=== PATIENT | female | born 1960 | race Caucasian/White ===

== ENCOUNTER 2016-05-07 07:34 | Emergency (ER) | payer MEDICAID, OTHER ==
[~2016-05-07] VITALS: Ht 172.7 cm; Wt 89.5 kg
[~2016-05-07 07:34] MED LIST: AMLO5 PO
[2016-05-07 07:36] VITALS: BP 171/86; PULSE 118; RESP 20; TEMP 98.1; O2SAT 95
[2016-05-07] MEDS ORDERED: AMLO5 PO (07:47)
--- NOTE | 2016-05-07 07:56 | PD ---
HPI Chief Complaint: Edema Time Seen by Provider: 07:49 Travel History International Travel<30 days: No Contact w/Intl Traveler<30days: No Traveled to known affect area: No History of Present Illness HPI 56-year-old female with history of previous DVT in the right leg, has had problems with obtaining Medicaid and has been off of Coumadin for a month, presents to the ER today because of several days' history of swelling in the left leg and calf discomfort. She denies any chest pains, shortness of breath, or any other symptoms. Modifying Factors: None Associated Signs & Symptoms: Left leg swelling Risk Factors: History of DVT in the right leg, not on Coumadin PFSH Past Medical History Hx Anticoagulant Therapy: Yes (COUMADIN) Arthritis: Yes Asthma: No Autoimmune Disease: No Anxiety: No Depression: No Heart Rhythm Problems: No Cancer: No Cardiovascular Problems: No High Cholesterol: Yes Chemotherapy: No Chest Pain: No Congestive Heart Failure: No COPD: No Cerebrovascular Accident: No Diabetes: No Diminished Hearing: No Endocrine: No Gastrointestinal Disorders: No GERD: No Genitourinary: No Hiatal Hernia: No Hypertension: Yes Immune Disorder: No Implanted Vascular Access Dvce: No Kidney Stones: No Musculoskeletal: No Neurologic: No Psychiatric: No Reproductive: No Respiratory: No Immunizations Current: No Migraines: No Radiation Therapy: No Renal Failure: No Seizures: No Sickle Cell Disease: No Sleep Apnea: No Thyroid Disease: No Ulcer: No Menopausal: Yes : 2 Para: 0 : 2 Ectopic : No Ovarian Cysts: No Dilation and Curettage (D&C): Yes Tubal Ligation: No Past Surgical History Abdominal Surgery: No AICD: No Arteriovenous Shunt: No Body Medical Devices: LEFT ANKLE ORIF Cardiac Surgery: No Section: No Ear Surgery: No Endocrine Surgery: No Eye Surgery: No Genitourinary Surgery: No Gynecologic Surgery: Yes (CONE BIOPSY OF CERVIX) Hysterectomy: No Insulin Pump: No Joint Replacement: No Oral Surgery: No Pacemaker: No Thoracic Surgery: No Other Surgery: Yes (LEFT ANKLE REDUCTION) Social History Alcohol Use: Yes Tobacco Use: Yes Substance Use: No Allergies-Medications (Allergen,Severity, Reaction): Coded Allergies: No Known Allergies (Verified , 11/20/15) Reported Meds & Prescriptions Reported Meds & Active Scripts Active Reported Norvasc (Amlodipine Besylate) 5 Mg Tab 5 Mg PO DAILY Review of Systems Except as stated in HPI: all other systems reviewed are Neg Physical Exam Narrative GENERAL: Well-nourished, well-developed middle age white female patient in no acute distress. SKIN: Warm and dry. HEAD: Normocephalic. EYES: No scleral icterus. No injection or drainage. NECK: Supple, trachea midline. CARDIOVASCULAR: Regular rate and rhythm without murmurs, gallops, or rubs. RESPIRATORY: Breath sounds equal bilaterally. No accessory muscle use. GASTROINTESTINAL: Abdomen soft, non-tender, nondistended. MUSCULOSKELETAL: No cyanosis, or edema. BACK: Nontender without obvious deformity. No CVA tenderness. EXTREMITIES: No clubbing, cyanosis, but with bilateral pitting lower extremity edema. No joint tenderness, effusion, or edema noted. Data Data Last Documented VS Vital Signs Date Time Temp Pulse Resp B/P Pulse Ox O2 Delivery O2 Flow Rate FiO2 05/07/16 09:56 92 21 136/68 99 Room Air 05/07/16 07:36 98.1 Orders Complete Blood Count With Diff (05/07/16 07:49) Basic Metabolic Panel (Bmp) (05/07/16 07:49) Prothrombin Time / Inr (Pt) (05/07/16 07:49) Act Partial Throm Time (Ptt) (05/07/16 07:49) Us Leg Venous Doppler Bilat (05/07/16 07:56) Enoxaparin Inj (Lovenox Inj) (05/07/16 09:45) Labs Laboratory Tests Test 05/07/16 07:50 White Blood Count 4.5 TH/MM3 Red Blood Count 4.89 MIL/MM3 Hemoglobin 17.2 GM/DL Hematocrit 49.8 % Mean Corpuscular Volume 101.9 FL Mean Corpuscular Hemoglobin 35.2 PG Mean Corpuscular Hemoglobin 34.5 % Concent Red Cell Distribution Width 15.6 % Platelet Count 173 TH/MM3 Mean Platelet Volume 6.2 FL Neutrophils (%) (Auto) 56.8 % Lymphocytes (%) (Auto) 30.0 % Monocytes (%) (Auto) 9.6 % Eosinophils (%) (Auto) 2.9 % Basophils (%) (Auto) 0.7 % Neutrophils # (Auto) 2.6 TH/MM3 Lymphocytes # (Auto) 1.4 TH/MM3 Monocytes # (Auto) 0.4 TH/MM3 Eosinophils # (Auto) 0.1 TH/MM3 Basophils # (Auto) 0.0 TH/MM3 CBC Comment DIFF FINAL Differential Comment Prothrombin Time 10.5 SEC Prothromb Time International 1.0 RATIO Ratio Activated Partial 23.7 SEC Thromboplast Time Sodium Level 142 MEQ/L Potassium Level 3.6 MEQ/L Chloride Level 105 MEQ/L Carbon Dioxide Level 25.4 MEQ/L Anion Gap 12 MEQ/L Blood Urea Nitrogen 7 MG/DL Creatinine 0.56 MG/DL Estimat Glomerular Filtration 112 ML/MIN Rate Random Glucose 132 MG/DL Calcium Level 8.8 MG/DL MDM Medical Decision Making Medical Screen Exam Complete: Yes Emergency Medical Condition: Yes Medical Record Reviewed: Yes Interpretation(s) Laboratory Tests Test 05/07/16 07:50 Hemoglobin 17.2 GM/DL (11.6-15.3) Hematocrit 49.8 % (35.0-46.0) Mean Corpuscular Volume 101.9 FL (80.0-100.0) Mean Corpuscular Hemoglobin 35.2 PG (27.0-34.0) Mean Platelet Volume 6.2 FL (7.0-11.0) Monocytes (%) (Auto) 9.6 % (0.0-8.0) Activated Partial 23.7 SEC Thromboplast Time (24.3-30.1) Random Glucose 132 MG/DL (74-106) Differential Diagnosis Left leg swellingrule out DVT versus dependent edema Narrative Course Ultrasound reveals right sided DVT which was previously diagnosed. Patient has not been able to take her blood thinners secondary to insurance issues. There is no new left-sided DVT which patient is complaining about now. The case was initially discussed briefly with Dr. Moore who reviewed the chart with me and noted that the patient had a bleeding episode in the past with Coumadin and had been recommended by Dr. Patrick of hematology to be on Eliquis. At this point, it does not appear that she needs inpatient admission but does need help with getting her Eliquis. I have talked to case management regarding the patient and we will give the patient a prescription for Eliquis and she will need to get this filled on her own. Patient states she will be able to do this for this month and will need to be evaluated for Medicare and Medicaid. She should return for any shortness of breath, chest pains, worsening in swelling or new issues as needed. The plan has been discussed with the patient and she states understanding and states that she thinks she can get this done as an outpatient. Diagnosis Primary Impression: Deep vein thrombosis (DVT) of right lower extremity Med/Other Pt SpecificInfo: Prescription(s) given Scripts Apixaban (Eliquis)5 Mg Tab10 Mg PO BID #14 TAB Ref 0 Prov:Ermias Real MD 05/07/16 Apixaban (Eliquis)5 Mg Tab5 Mg PO BID #60 TAB Ref 0 Prov:Ermias Real MD 05/07/16 Disposition: 01 DISCHARGE HOME Condition: Stable Ermias Real MD May 07, 2016 07:56
[2016-05-07 08:09] LABS: AUTOMATED NEUTROPHIL # 2.6 TH/MM3 (1.8-7.7); BASOPHIL % 0.7 % (0.0-2.0); EOSINOPHIL # 0.1 TH/MM3 (0-0.4); EOSINOPHIL % 2.9 % (0.0-4.0); HEMATOCRIT 49.8 % (35.0-46.0); HEMO FLAGS DIFF FINAL; LYMPHOCYTE # 1.4 TH/MM3 (1.0-4.8); MEAN CELL VOLUME 101.9 FL (80.0-100.0); MEAN CORPUSCULAR HEMOGLOBIN 35.2 PG (27.0-34.0); MEAN CORPUSCULAR HGB CONC 34.5 % (32.0-36.0); MONO % 9.6 % (0.0-8.0); NEUT % 56.8 % (16.0-70.0); PLATELET COUNT 173 TH/MM3 (150-450); RED BLOOD COUNT 4.89 MIL/MM3 (4.00-5.30); RED CELL DISTRIBUTION WIDTH 15.6 % (11.6-17.2); WHITE BLOOD COUNT 4.5 TH/MM3 (4.0-11.0)
[2016-05-07 08:15] LABS: APTT (PATIENT) 23.7 SEC (24.3-30.1); PROTHROMBIN TIME - PATIENT 10.5 SEC (9.8-11.6)
[2016-05-07 08:35] LABS: BICARBONATE 25.4 MEQ/L (21.0-32.0); POTASSIUM 3.6 MEQ/L (3.5-5.1)
--- NOTE | 2016-05-07 09:28 | RADRPT ---
EXAM DATE/TIME: 05/07/2016 07:46 [facility] COMPARISON: No previous studies available for comparison. INDICATIONS : Bilateral leg swelling. MEDICAL HISTORY : Hypercholesterolemia. Hypertension. Arthritis. Anticoagulant therapy. Hx of Dvt right leg. SURGICAL HISTORY : CONE procedure of cervix. Left ankle surgery. ENCOUNTER: Subsequent ACUITY: 1 day PAIN SCORE: 7/10 LOCATION: Bilateral legs. TECHNIQUE: Venous ultrasound of the left and right leg was performed from the inguinal ligament to the proximal calf. Real-time, color Doppler and spectral tracing, compression and augmentation techniques were us ed. FINDINGS: RIGHT LEG: There is extensive right lower extremity DVT with clot seen in the iliac, common femoral, superficial femoral and tibial veins. LEFT LEG: There is normal compressibility of the deep venous system from the inguinal region to the proximal ca lf. No echogenic clot is seen in the lumen of the common femoral, femoral, popliteal, and posterior tibial veins. There is a normal response of the venous system to proximal and distal augmentation an d respiration. CONCLUSION: Extensive right lower extremity DVT Yann Torres MD on May 07, 2016 at 9:25 Board Certified Radiologist. This report was verified electronically.
[2016-05-07] MEDS ORDERED: ENOXAPARIN SODIUM 80 MG/0.8 ML SYRINGE SQ ONE (09:45)
[2016-05-07 09:56] VITALS: BP 136/68; PULSE 92; RESP 21; O2SAT 99
[2016-05-07] MEDS ORDERED: APIX5TAB PO (10:43)
[2016-05-07 11:54] VITALS: BP 134/88
== END 2016-05-07 12:21 | disposition home or self-care (01) ==
LOC: NEPE 07:34
DX: I82.401 Acute embolism and thrombosis of unspecified deep veins of right lower extremity (principal); R22.42 Localized swelling, mass and lump, left lower limb; E78.00 Pure hypercholesterolemia, unspecified; I10 Essential (primary) hypertension; Z72.0 Tobacco use
CPT/HCPCS: 80048; 85025; 85610; 85730; 93970; 96372; 99284; J1650

== ENCOUNTER 2017-04-11 15:37 | Inpatient (IN) | payer OTHER, MEDICARE ==
[~2017-04-11] VITALS: Ht 172.7 cm; Wt 99.5 kg
[~2017-04-11 15:37] MED LIST changes: +APIX5TAB PO
[2017-04-11 15:56] VITALS: BP 141/81; PULSE 110; RESP 22; TEMP 99.1; O2SAT 97
[2017-04-11 15:57] VITALS: O2SAT 98
[2017-04-11] MEDS ORDERED: SODIUM CHLOR 0.9% 1000 ML INJ 1,000 ML IV ONE (16:00)
[2017-04-11] MEDS ORDERED: ONDANSETRON HCL 4 MG/2 ML VIAL IVP ONE (16:00)
[2017-04-11] MEDS ORDERED: SODIUM CHLORIDE 0.9% FLUSH 10 ML FLUSH IVF PRN (16:00)
[2017-04-11] MEDS ORDERED: HYDROmorphone HCL PF 1 MG/ML VIAL IVS ONE (16:00)
[2017-04-11] MEDS ORDERED: SIMV80TA PO (16:03)
--- NOTE | 2017-04-11 16:31 | RADRPT ---
EXAM DATE/TIME: 04/11/2017 16:02 [facility] COMPARISON: No previous studies available for comparison. INDICATIONS : Right hip pain, fell MEDICAL HISTORY : Arthritis. Hypertension SURGICAL HISTORY : None. ENCOUNTER: Initial ACUITY: 1 day PAIN SCORE: 10/10 LOCATION: Right Hip FINDINGS: Examination of the right hip was performed with AP Pelvis. There is an oblique fracture through the t rochanteric and subtrochanteric region of the proximal right femur. The femoral head remains within t he acetabulum. There is moderate to prominent osteoarthritis at the right hip joint. The bony structu res of the pelvis are grossly intact. There is good alignment the left hip joint.. CONCLUSION: Oblique fracture through the trochanteric and subtrochanteric region of the proximal right femur. Abelardo Combs MD on April 11, 2017 at 16:29 Board Certified Radiologist. This report was verified electronically.
--- NOTE | 2017-04-11 17:08 | PD ---
HPI Chief Complaint: Fall Time Seen by Provider: 15:51 Travel History International Travel<30 days: No Contact w/Intl Traveler<30days: No Traveled to known affect area: No History of Present Illness HPI The patient's 49 years old had a mechanical fall this morning. She fell onto her right hip. She's had pain since then. The fire department came to her house and helped onto her chair. She spent the day they are and then called EMS and she was unable to walk. EMS reports a shortened rotated right lower extremity. Constant severe pain reported. Patient reports drinking alcohol today, "a sip." PFSH Past Medical History Hx Anticoagulant Therapy: Yes (ELIQUIS) Arthritis: Yes Asthma: No Autoimmune Disease: No Anxiety: No Depression: No Heart Rhythm Problems: No Cancer: No Cardiovascular Problems: Yes (HTN HIGH CHOLESTEROL) High Cholesterol: Yes Chemotherapy: No Chest Pain: No Congestive Heart Failure: No COPD: No Cerebrovascular Accident: No Diabetes: No Diminished Hearing: No Endocrine: No Gastrointestinal Disorders: No GERD: No Genitourinary: No Hiatal Hernia: No Hypertension: Yes Immune Disorder: No Implanted Vascular Access Dvce: No Kidney Stones: No Musculoskeletal: No Neurologic: No Psychiatric: No Reproductive: No Respiratory: No Immunizations Current: No Migraines: No Radiation Therapy: No Renal Failure: No Seizures: No Sickle Cell Disease: No Sleep Apnea: No Thyroid Disease: No Ulcer: No Influenza Vaccination: No ?: Not Menopausal: Yes : 2 Para: 0 : 2 Ectopic : No Ovarian Cysts: No Dilation and Curettage (D&C): Yes Tubal Ligation: No Past Surgical History Abdominal Surgery: No AICD: No Arteriovenous Shunt: No Body Medical Devices: LEFT ANKLE ORIF Cardiac Surgery: No Section: No Ear Surgery: No Endocrine Surgery: No Eye Surgery: No Genitourinary Surgery: No Gynecologic Surgery: Yes (CONE BIOPSY OF CERVIX) Hysterectomy: No Insulin Pump: No Joint Replacement: No Oral Surgery: No Pacemaker: No Thoracic Surgery: No Other Surgery: Yes (LEFT ANKLE REDUCTION) Social History Alcohol Use: Yes (1 PINT DAILY) Tobacco Use: Yes (6 CIGS/DAY) Substance Use: No Allergies-Medications (Allergen,Severity, Reaction): Coded Allergies: No Known Allergies (Verified Adverse Reaction, Unknown, 04/11/17) Reported Meds & Prescriptions Reported Meds & Active Scripts Active Eliquis (Apixaban) 5 Mg Tab 5 Mg PO BID Reported Norvasc (Amlodipine Besylate) 5 Mg Tab 10 Mg PO DAILY Review of Systems Except as stated in HPI: all other systems reviewed are Neg General / Constitutional: No: Fever Physical Exam Narrative GENERAL: 57-year-old female pleasant well-nourished well-developed mild to moderate distress secondary to pain SKIN: Warm and dry. HEAD: Atraumatic. Normocephalic. EYES: Pupils equal and round. No scleral icterus. No injection or drainage. ENT: No nasal bleeding or discharge. Mucous membranes pink and moist. NECK: Trachea midline. No JVD. CARDIOVASCULAR: Regular rate and rhythm. RESPIRATORY: No accessory muscle use. Clear to auscultation. Breath sounds equal bilaterally. GASTROINTESTINAL: Abdomen soft, non-tender, nondistended. Hepatic and splenic margins not palpable. MUSCULOSKELETAL: Right lower extremity shortened and externally rotated. 2+ dorsalis pedis bilaterally. NEUROLOGICAL: Awake and alert. No obvious cranial nerve deficits. Motor grossly within normal limits. Five out of 5 muscle strength in the arms and legs. Normal speech. PSYCHIATRIC: Appropriate mood and affect; insight and judgment normal. Data Data Last Documented VS Vital Signs Date Time Temp Pulse Resp B/P (MAP) Pulse Ox O2 Delivery O2 Flow Rate FiO2 04/11/17 15:57 98 Room Air 04/11/17 15:56 99.1 110 22 Vital signs reviewed Orders Orders Complete Blood Count With Diff (04/11/17 15:51) Comprehensive Metabolic Panel (04/11/17 15:51) Prothrombin Time / Inr (Pt) (04/11/17 15:51) Act Partial Throm Time (Ptt) (04/11/17 15:51) Urinalysis - C+S If Indicated (04/11/17 15:51) Hip, Uni(Ap&Lat) W Ap Pelvis (04/11/17 15:51) Iv Access Insert/Monitor (04/11/17 15:51) Oximetry (04/11/17 15:51) Ecg Monitoring (04/11/17 15:51) Ondansetron Inj (Zofran Inj) (04/11/17 16:00) Sodium Chloride 0.9% Flush (Ns Flush) (04/11/17 16:00) Hydromorphone Pf Inj (Dilaudid Pf Inj) (04/11/17 16:00) Sodium Chlor 0.9% 1000 Ml Inj (Ns 1000 M (04/11/17 16:00) Alcohol (Ethanol) (04/11/17 15:51) Hydromorphone Pf Inj (Dilaudid Pf Inj) (04/11/17 17:15) Admit Order (Ed Use Only) (04/11/17 ) Vital Signs (Adult) Q4H (04/11/17 17:16) Diet Heart Healthy (04/11/17 Dinner) Activity Bed Rest (04/11/17 17:16) Labs Laboratory Tests Test 04/11/17 15:56 White Blood Count 10.1 TH/MM3 Red Blood Count 3.86 MIL/MM3 Hemoglobin 14.1 GM/DL Hematocrit 41.8 % Mean Corpuscular Volume 108.4 FL Mean Corpuscular Hemoglobin 36.6 PG Mean Corpuscular Hemoglobin Concent 33.7 % Red Cell Distribution Width 14.5 % Platelet Count 202 TH/MM3 Mean Platelet Volume 6.6 FL Neutrophils (%) (Auto) 81.8 % Lymphocytes (%) (Auto) 9.8 % Monocytes (%) (Auto) 7.7 % Eosinophils (%) (Auto) 0.2 % Basophils (%) (Auto) 0.5 % Neutrophils # (Auto) 8.3 TH/MM3 Lymphocytes # (Auto) 1.0 TH/MM3 Monocytes # (Auto) 0.8 TH/MM3 Eosinophils # (Auto) 0.0 TH/MM3 Basophils # (Auto) 0.0 TH/MM3 CBC Comment DIFF FINAL Differential Comment Prothrombin Time 10.2 SEC Prothromb Time International Ratio 1.0 RATIO Activated Partial Thromboplast Time 23.8 SEC Blood Urea Nitrogen 5 MG/DL Creatinine 0.55 MG/DL Random Glucose 133 MG/DL Total Protein 6.6 GM/DL Albumin 3.0 GM/DL Calcium Level 7.7 MG/DL Alkaline Phosphatase 79 U/L Aspartate Amino Transf (AST/SGOT) 48 U/L Alanine Aminotransferase (ALT/SGPT) 48 U/L Total Bilirubin 0.5 MG/DL Sodium Level 143 MEQ/L Potassium Level 2.9 MEQ/L Chloride Level 106 MEQ/L Carbon Dioxide Level 23.5 MEQ/L Anion Gap 14 MEQ/L Estimat Glomerular Filtration Rate 114 ML/MIN Ethyl Alcohol Level 133 MG/DL MDM Medical Decision Making Medical Screen Exam Complete: Yes Emergency Medical Condition: Yes Medical Record Reviewed: Yes Differential Diagnosis Pelvis fracture, femur fracture, contusion, alcohol abuse Narrative Course CBC & BMP Diagram 04/11/17 15:56 Total Protein 6.6, Albumin 3.0 L, Calcium Level 7.7 L, Alkaline Phosphatase 79, Aspartate Amino Transf (AST/SGOT) 48 H, Alanine Aminotransferase (ALT/SGPT) 48, Total Bilirubin 0.5 Alcohol 133 UA: UA unlikely Last 24 hours Impressions Hip and Pelvis X-Ray 04/11/17 1551 Signed Impressions: Service Date/Time: Tuesday, April 11, 2017 16:02 - CONCLUSION: Oblique fracture through the trochanteric and subtrochanteric region of the proximal right femur. Abelardo Combs MD The patient has a oblique fracture through the trochanter and subtrochanteric region of the proximal right femur. She'll be admitted for operative repair. Asked by mouth Xarelto dose was April 10, yesterday, evening. She took none today. Case discussed with Dr. Lee. Case discussed with Dr. Foley Diagnosis Primary Impression: Femur fracture, right Qualified Codes: S72.91XA - Unspecified fracture of right femur, initial encounter for closed fracture Additional Impressions: Fall Qualified Codes: W19.XXXA - Unspecified fall, initial encounter Hypokalemia Admitting Information Admitting Physician Requests: Admit Urbano Beckford MD Apr 11, 2017 17:08
[2017-04-11] MEDS ORDERED: HYDROmorphone HCL PF 1 MG/ML VIAL IV PUSH ONE (17:15)
[2017-04-11 17:16] LABS: AUTOMATED NEUTROPHIL # 8.3 TH/MM3 (1.8-7.7); BASOPHIL % 0.5 % (0.0-2.0); EOSINOPHIL % 0.2 % (0.0-4.0); HEMATOCRIT 41.8 % (35.0-46.0); HEMO FLAGS DIFF FINAL; LYMPH % 9.8 % (9.0-44.0); MEAN CELL VOLUME 108.4 FL (80.0-100.0); MEAN CORPUSCULAR HEMOGLOBIN 36.6 PG (27.0-34.0); MEAN CORPUSCULAR HGB CONC 33.7 % (32.0-36.0); MONO % 7.7 % (0.0-8.0); NEUT % 81.8 % (16.0-70.0); PLATELET COUNT 202 TH/MM3 (150-450); RED BLOOD COUNT 3.86 MIL/MM3 (4.00-5.30); RED CELL DISTRIBUTION WIDTH 14.5 % (11.6-17.2); WHITE BLOOD COUNT 10.1 TH/MM3 (4.0-11.0)
[2017-04-11 17:27] LABS: APTT (PATIENT) 23.8 SEC (24.3-30.1); PROTHROMBIN TIME - PATIENT 10.2 SEC (9.8-11.6)
[2017-04-11 17:46] LABS: ALT (GPT) 48 U/L (10-53); ANION GAP 14 MEQ/L (5-15); AST (GOT) 48 U/L (15-37); BICARBONATE 23.5 MEQ/L (21.0-32.0); BLOOD UREA NITROGEN 5 MG/DL (7-18); CHLORIDE 106 MEQ/L (98-107); GLOMERULAR FILTRATION RATE 114 ML/MIN (>89); SODIUM (NA) 143 MEQ/L (136-145)
[2017-04-11 17:48] LABS: ALKALINE PHOSPHATASE 79 U/L (45-117); TOTAL BILIRUBIN ADULT 0.5 MG/DL (0.2-1.0)
[2017-04-11 18:05] LABS: ALCOHOL 133 MG/DL (0-5)
[2017-04-11 18:08] LABS: POTASSIUM 2.9 MEQ/L (3.5-5.1)
[2017-04-11 18:11] LABS: BACTERIA, URINE RARE /hpf; BLOOD, URINE NEG (NEG); COMMENT (UR) CATH-CULTURE IND; CULTURE IF INDICATED CATH CULTURE IND; GLUCOSE,URINE NEG (NEG); HYALINE CAST, URINE 35 /lpf (RARE); KETONE, URINE 10 mg/dL (NEG); MUCUS URINE FEW /lpf (OCC); NITRITE,URINE NEG (NEG); PH, URINE 5.5 (5.0-8.5); SQUAMOUS EPITHELIAL CELL URINE 3 /hpf (0-5); URINE COLOR YELLOW (YELLW/STRAW)
[2017-04-11] MEDS ORDERED: cefTRIAXone INJ 1,000 MG in SODIUM CHLORIDE 0.9% INJ 100 ML IV ONE (18:15)
[2017-04-11] MEDS ORDERED: POTASSIUM CHLORIDE 20 MEQ CONTROLLED RELEASE TAB PO ONE ×2 (18:15)
[2017-04-11] MEDS ORDERED: PROMETHAZINE INJ 25 MG/ML VIAL IM ONE (18:30)
[2017-04-11] MEDS ORDERED: FLUMAZENIL 0.5 MG/5 ML VIAL IV PUSH PRN (18:45)
[2017-04-11] MEDS ORDERED: LACTULOSE SYRUP 20 GM/30 ML CUP PO PRN (18:45)
[2017-04-11] MEDS ORDERED: cloNIDine HCL 0.1 MG TAB PO PRN (18:45)
[2017-04-11] MEDS ORDERED: SODIUM CHLORIDE 0.9% FLUSH 10 ML FLUSH IV FLUSH PRN ×2 (18:45)
[2017-04-11] MEDS ORDERED: LORazepam 2 MG TAB PO PRN (18:45)
[2017-04-11] MEDS ORDERED: MORPHINE SULFATE 4 MG/ML INJ IV PUSH PRN ×2 (18:45)
[2017-04-11] MEDS ORDERED: HALOPERIDOL LACTATE 5 MG/ML AMP IM PRN (18:45)
[2017-04-11] MEDS ORDERED: LORazepam 1 MG TAB PO PRN (18:45)
[2017-04-11] MEDS ORDERED: SENNOSIDES 8.6 MG TAB PO PRN (18:45)
[2017-04-11] MEDS ORDERED: ZOLPIDEM TARTRATE 5 MG TAB PO PRN (18:45)
[2017-04-11] MEDS ORDERED: ONDANSETRON HCL 4 MG/2 ML VIAL IVP PRN (18:45)
[2017-04-11] MEDS ORDERED: MAGNESIUM HYDROXIDE SUSP 30 ML CUP PO PRN (18:45)
[2017-04-11] MEDS ORDERED: IBUPROFEN 400 MG TAB PO PRN (18:45)
[2017-04-11] MEDS ORDERED: LORazepam 2 MG/ML VIAL IV PUSH PRN ×4 (18:45)
[2017-04-11] MEDS ORDERED: BISACODYL 10 MG SUPP RECTAL PRN (18:45)
[2017-04-11] MEDS ORDERED: PROCHLORPERAZINE 25 MG SUPP RECTAL PRN (18:45)
[2017-04-11] MEDS ORDERED: ACETAMINOPHEN 325 MG TAB PO PRN (18:45)
[2017-04-11] MEDS ORDERED: NALOXONE HCL 0.4 MG/ML AMP IV PUSH PRN (18:45)
[2017-04-11 18:47] VITALS: BP 134/74; PULSE 105; RESP 17; O2SAT 98
[2017-04-11] MEDS ORDERED: chlordiazePOXIDE 25 MG CAP PO PRN (19:00)
[2017-04-11] MEDS ORDERED: NICOTINE 7 MG/24 HR PATCH T-DERMAL ONE (19:00)
--- NOTE | 2017-04-11 19:21 | HHI.HP ---
[facility] Physician Dalila Wu DO Admission Diagnosis R Intertrochanteric Fracture; Fall Diagnoses: Chief Complaint: Status post fall Travel History International Travel<30 Days: No Contact w/Intl Traveler <30 Da: No Traveled to Known Affected Are: No History of Present Illness Patient is a 49-year-old female. Had a mechanical fall this morning. She has a history of chronic alcoholism hypertension and chronic blood clots on Eliquis Patient fell on her right hip. She is therefore had pain to the area since then. The fire department was called and they came to her house helped her onto her chair. She then spent the day on her chair and then called EMS and she was unable to walk. EMS reports is shortened and rotated right lower extremity. An constant severe pain reported patient reports drinking alcohol today. Patient also states that she normally drinks a pint of vodka every day if not more. Also smokes 6 cigarettes daily down from 1-1/2 packs a day Review of Systems Constitutional: DENIES: Diaphoretic episodes, Fatigue, Weight loss, Chills Endocrine: DENIES: Abnorml menstrual pattern, Heat/cold intolerance, Polydipsia , Polyuria, Polyphagia Eyes: DENIES: Blurred vision, Diplopia, Eye inflammation, Eye pain Ears, nose, mouth, throat: DENIES: Hearing loss, Vertigo, Nasal discharge, Oral lesions Respiratory: COMPLAINS OF: Cough, DENIES: Apneas, Snoring, Wheezing, Hemoptysis , Sputum production Cardiovascular: DENIES: Chest pain, Palpitations, Syncope, Dyspnea on Exertion Gastrointestinal: DENIES: Abdominal pain, Black stools, Bloody stools Genitourinary: DENIES: Abnormal vaginal bleeding, Dysmenorrhea Musculoskeletal: COMPLAINS OF: Joint pain, DENIES: Muscle aches, Stiffness, Joint Swelling, Back pain Integumentary: DENIES: Abnormal pigmentation, Pruritus, Rash, Nail changes Hematologic/lymphatic: DENIES: Bruising, Lymphadenopathy Immunologic/allergic: DENIES: Eczema, Urticaria Neurologic: COMPLAINS OF: Abnormal gait, Localized weakness, Poor Balance, DENIES: Headache, Paresthesias, Seizures, Speech Problems, Tremor Psychiatric: DENIES: Anxiety, Confusion, Mood changes, Depression, Hallucinations, Agitation Except as stated in HPI: all other systems reviewed are Neg Past Family Social History Past Medical History Chronic anticoagulation on Eliquis Osteoarthritis Hypertension Hyperlipidemia Past Surgical History History of D&C Left ankle ORIF History of cone biopsy of the cervix Left ankle reduction Reported Medications Reported Meds & Active Scripts Active Eliquis (Apixaban) 5 Mg Tab 5 Mg PO BID Reported Simvastatin 80 Mg Tab 80 Mg PO DAILY Norvasc (Amlodipine Besylate) 5 Mg Tab 10 Mg PO DAILY Allergies: Coded Allergies: No Known Allergies (Verified Allergy, Unknown, 04/11/17) Active Ordered Medications Current Medications Ondansetron HCl (Zofran Inj) 4 mg ONCE ONCE IVP Last administered on 16:15; Start 04/11/17 at 16:00; Stop 04/11/17 at 16:01; Status DC Sodium Chloride (NS Flush) 2 ml UNSCH PRN IVF FLUSH AFTER USING IV ACCESS; Start 04/11/17 at 16:00 Hydromorphone HCl (Dilaudid Pf Inj) 0.5 mg ONCE ONCE IVS Last administered on 04/11/17 16:16; Start 04/11/17 at 16:00; Stop 04/11/17 at 16:01; Status DC Sodium Chloride 1,000 ml @ 999 mls/hr BOLUS ONCE IV Last administered on 16:15; Start 04/11/17 at 16:00; Stop 04/11/17 at 17:00; Status DC Hydromorphone HCl (Dilaudid Pf Inj) 1 mg ONCE ONCE IV PUSH Last administered on 04/11/17 17:34; Start 04/11/17 at 17:15; Stop 04/11/17 at 17:16; Status DC Potassium Chloride (KCl) 40 meq ONCE ONCE PO Last administered on 04/11/17 18:35; Start 04/11/17 at 18:15; Stop 04/11/17 at 18:16; Status DC Potassium Chloride (KCl) 40 meq ONCE ONCE PO ; Start 04/11/17 at 18:15; Stop 04/11/17 at 18:16; Status DC Ceftriaxone Sodium 1000 mg/ Sodium Chloride 100 ml @ 200 mls/hr ONCE ONCE IV Last administered on 04/11/17 18:35; Start 04/11/17 at 18:15; Stop 04/11/17 at 18:44; Status DC Promethazine HCl (Phenergan Inj) 25 mg ONCE ONCE IM Last administered on 04/11 18:35; Start 04/11/17 at 18:30; Stop 04/11/17 at 18:31; Status DC Sodium Chloride (NS Flush) 2 ml UNSCH PRN IV FLUSH FLUSH AFTER USING IV ACCESS ; Start 04/11/17 at 18:45; Status UNV Sodium Chloride (NS Flush) 2 ml BID IV FLUSH ; Start 04/11/17 at 21:00; Status UNV Acetaminophen (Tylenol) 650 mg Q4H PRN PO TEMP > 100.4; Start 04/11/17 at 18: 45 Ondansetron HCl (Zofran Inj) 4 mg Q6H PRN IVP NAUSEA OR VOMITING; Start at 18:45; Status UNV Prochlorperazine (Compazine Supp) 25 mg Q12H PRN FL NAUSEA OR VOMITING; Start 04/11/17 at 18:45; Status UNV Zolpidem Tartrate (Ambien) 5 mg HS PRN PO INSOMNIA; Start 04/11/17 at 18:45; Status UNV Ibuprofen (Motrin) 400 mg Q6H PRN PO PAIN SCALE 1 TO 2; Start 04/11/17 at 18: 45; Status UNV Oxycodone HCl (Roxicodone) 10 mg Q4H PRN PO PAIN SCALE 6 TO 10; Start at 18:45; Status UNV Morphine Sulfate (Morphine Inj) 2 mg Q3H PRN IV PUSH Pain 3-5; if unable to take PO; Start 04/11/17 at 18:45; Status UNV Morphine Sulfate (Morphine Inj) 4 mg Q3H PRN IV PUSH Pain 6-10;if unable to take PO; Start 04/11/17 at 18:45; Status UNV Morphine Sulfate (Morphine Inj) 4 mg Q3H PRN IV PUSH BREAKTHROUGH PAIN; Start 04/11/17 at 18:45; Status UNV Oxycodone HCl (Roxicodone) 5 mg Q4H PRN PO PAIN SCALE 3 TO 5; Start 04/11/17 at 18:45; Status UNV Naloxone HCl (Narcan Inj) 0.4 mg UNSCH PRN IV PUSH SEE LABEL COMMENTS; Start 04/11/17 at 18:45; Status UNV Senna/Docusate Sodium (Tarsha-Colace) 1 tab BID PO ; Start 04/11/17 at 21:00 Magnesium Hydroxide (Milk Of Magnesia Liq) 30 ml Q12H PRN PO Mild constipation ; Start 04/11/17 at 18:45; Status UNV Sennosides (Senokot) 17.2 mg Q12H PRN PO Moderate constipation; Start at 18:45; Status UNV Bisacodyl (Dulcolax Supp) 10 mg DAILY PRN RECTAL SEVERE CONSITIPATION; Start 04/11/17 at 18:45 Lactulose (Lactulose Liq) 30 ml DAILY PRN PO SEVERE CONSITIPATION; Start 04/11 at 18:45; Status UNV Flumazenil (Romazicon Inj) 0.2 mg Q1M PRN IV PUSH SEE LABEL COMMENTS; Start at 18:45 Lorazepam (Ativan) 1 mg Q4H PRN PO CIWA 8 - 10; Start 04/11/17 at 18:45; Status UNV Lorazepam (Ativan Inj) 1 mg Q4H PRN IV PUSH CIWA 8 - 10; Start 04/11/17 at 18: 45; Status UNV Lorazepam (Ativan) 2 mg Q2H PRN PO CIWA 11-14; Start 04/11/17 at 18:45; Status UNV Lorazepam (Ativan Inj) 2 mg Q2H PRN IV PUSH CIWA 11-14; Start 04/11/17 at 18: 45; Status UNV Lorazepam (Ativan Inj) 2 mg Q1H PRN IV PUSH CIWA 15-20; Start 04/11/17 at 18: 45; Status UNV Lorazepam (Ativan Inj) 2 mg Q15M PRN IV PUSH CIWA > 20; Start 04/11/17 at 18: 45; Status UNV Sodium Chloride (NS Flush) 2 ml UNSCH PRN IV FLUSH FLUSH AFTER USING IV ACCESS ; Start 04/11/17 at 18:45; Status UNV Sodium Chloride (NS Flush) 2 ml BID IV FLUSH ; Start 04/11/17 at 21:00; Status UNV Folic Acid (Folate) 1 mg DAILY PO ; Start 04/11/17 at 18:45; Stop 04/16/17 at 18:44; Status UNV Thiamine HCl (Vitamin B1) 100 mg DAILY PO ; Start 04/11/17 at 18:45; Status UNV Multivitamins/ Minerals Therapeutic (Theragran M Tab) 1 tab DAILY PO ; Start at 18:45; Stop 04/16/17 at 18:44; Status UNV Multivitamins 10 ml/Folic Acid 1 mg/Sodium Chloride 510.2 ml @ 125 mls/hr Q24H IV ; Start 04/11/17 at 20:00; Stop 04/16/17 at 19:59 Thiamine HCl 100 mg/Sodium Chloride 101 ml @ 100 mls/hr Q24H IV ; Start at 20:00; Stop 04/14/17 at 19:59 Thiamine HCl (Vitamin B1) 100 mg DAILY PO ; Start 04/15/17 at 09:00; Status UNV Famotidine (Pepcid) 20 mg BID PO ; Start 04/11/17 at 21:00 Clonidine (Catapres) 0.1 mg Q6H PRN PO SEE LABEL COMMENTS; Start 04/11/17 at 18:45 Haloperidol Lactate (Haldol Inj) 2 mg Q15M PRN IM SEE LABEL COMMENTS; Start at 18:45; Status UNV Nicotine (Habitrol 7 Mg Patch.24 Hr) 1 patch DAILY T-DERMAL ; Start 04/12/17 at 09:00; Status UNV Nicotine (Habitrol 7 Mg Patch.24 Hr) 1 patch ONCE ONCE T-DERMAL ; Start at 19:00; Stop 04/11/17 at 19:01; Status UNV Miscellaneous Information 1 DAILY T-DERMAL ; Start 04/12/17 at 09:00; Status UNV Chlordiazepoxide (Librium) 50 mg Q6H PRN PO WITHDRAWAL; Start 04/11/17 at 19: 00 Amlodipine Besylate (Norvasc) 10 mg DAILY PO ; Start 04/11/17 at 19:00 Non-Formulary Medication 80 mg DAILY PO ; Start 04/11/17 at 19:00; Status UNV Family History Tobacco abuse and suspected hypertension Social History Drinks at least a pint of vodka every day Smokes 6 cigarettes now down from one half packs of cigarettes a day Denies any illicits Physical Exam Vital Signs Vital Signs Date Time Temp Pulse Resp B/P (MAP) Pulse Ox O2 Delivery O2 Flow Rate FiO2 04/11/17 18:47 105 17 134/74 (94) 98 Nasal Cannula 2.00 04/11/17 15:57 98 Room Air 04/11/17 15:56 99.1 110 22 141/81 (101) 97 Room Air Physical Exam GENERAL: This is a well-nourished, well-developed patient, in moderate distress. SKIN: No rashes, ecchymoses or lesions. Cool and dry. HEAD: Atraumatic. Normocephalic. No temporal or scalp tenderness. EYES: Pupils equal round and reactive. Extraocular motions intact. No scleral icterus. No injection or drainage. ENT: Nose without bleeding, purulent drainage or septal hematoma. Throat without erythema, tonsillar hypertrophy or exudate. Uvula midline. Airway patent. NECK: Trachea midline. No JVD or lymphadenopathy. Supple, nontender, no meningeal signs. CARDIOVASCULAR: Regular rate and rhythm without murmurs, gallops, or rubs. S1 and S2 no S3 or S4 RESPIRATORY: Clear to auscultation. Breath sounds equal bilaterally. No wheezes , rales, or rhonchi. GASTROINTESTINAL: Abdomen soft, non-tender, nondistended. No hepato-splenomegaly , or palpable masses. No guarding. MUSCULOSKELETAL: Extremities without clubbing, cyanosis, or edema. No joint tenderness, effusion, or edema noted. No calf tenderness. Negative Homans sign bilaterally. Tender right hip with decreased and shortened and externally rotated right hip NEUROLOGICAL: Awake and alert. Cranial nerves II through XII intact. Motor and sensory grossly within normal limits. Five out of 5 muscle strength in all muscle groups. Normal speech. Insight and judgment is good Mood and behavior is appropriate Laboratory Laboratory Tests Test 04/11/17 15:56 04/11/17 17:34 White Blood Count 10.1 Red Blood Count 3.86 Hemoglobin 14.1 Hematocrit 41.8 Mean Corpuscular Volume 108.4 Mean Corpuscular Hemoglobin 36.6 Mean Corpuscular Hemoglobin Concent 33.7 Red Cell Distribution Width 14.5 Platelet Count 202 Mean Platelet Volume 6.6 Neutrophils (%) (Auto) 81.8 Lymphocytes (%) (Auto) 9.8 Monocytes (%) (Auto) 7.7 Eosinophils (%) (Auto) 0.2 Basophils (%) (Auto) 0.5 Neutrophils # (Auto) 8.3 Lymphocytes # (Auto) 1.0 Monocytes # (Auto) 0.8 Eosinophils # (Auto) 0.0 Basophils # (Auto) 0.0 CBC Comment DIFF FINAL Differential Comment Prothrombin Time 10.2 Prothromb Time International Ratio 1.0 Activated Partial Thromboplast Time 23.8 Blood Urea Nitrogen 5 Creatinine 0.55 Random Glucose 133 Total Protein 6.6 Albumin 3.0 Calcium Level 7.7 Alkaline Phosphatase 79 Aspartate Amino Transf (AST/SGOT) 48 Alanine Aminotransferase (ALT/SGPT) 48 Total Bilirubin 0.5 Sodium Level 143 Potassium Level 2.9 Chloride Level 106 Carbon Dioxide Level 23.5 Anion Gap 14 Estimat Glomerular Filtration Rate 114 Ethyl Alcohol Level 133 Urine Color YELLOW Urine Turbidity HAZY Urine pH 5.5 Urine Specific [place] 1.015 Urine Protein 30 Urine Glucose (UA) NEG Urine Ketones 10 Urine Occult Blood NEG Urine Nitrite NEG Urine Bilirubin NEG Urine Urobilinogen LESS THAN 2.0 Urine Leukocyte Esterase NEG Urine RBC 1 Urine WBC 3 Urine Squamous Epithelial Cells 3 Urine Bacteria RARE Urine Hyaline Casts 35 Urine Mucus FEW Microscopic Urinalysis Comment CATH-CULTURE IND Date/Time Source Procedure Growth Status 04/11/17 17:34 Urine Catheterized Urine Urine Culture Pending Received Result Diagram: 04/11/17 1556 04/11/17 1556 Imaging Last Impressions Hip and Pelvis X-Ray 04/11/17 1551 Signed Impressions: Service Date/Time: Tuesday, April 11, 2017 16:02 - CONCLUSION: Oblique fracture through the trochanteric and subtrochanteric region of the proximal right femur. MD Tomeka Ruvalcabai VTE Risk Assessment Caprini VTE Risk Assessment: Mod/High Risk (score >= 2) Caprini Risk Assessment Model Point Value = 1 Point Value = 2 Point Value = 3 Point Value = 5 Age 41-60 Minor surgery BMI > 25 kg/m2 Swollen legs Varicose veins or History of unexplained or recurrent spontaneous Oral contraceptives or hormone replacement Sepsis (< 1 month) Serious lung disease, including pneumonia (< 1 month) Abnormal pulmonary function Acute myocardial infarction Congestive heart failure (< 1 month) History of inflammatory bowel disease Medical patient at bed rest Age 61-74 Arthroscopic surgery Major open surgery (> 45 min) Laparoscopic surgery (> 45 min) Malignancy Confined to bed (> 72 hours) Immobilizing plaster cast Central venous access Age >= 75 History of VTE Family history of VTE Factor V Leiden Prothrombin [id number] Lupus anticoagulant Anticardiolipin antibodies Elevated serum homocysteine Heparin-induced thrombocytopenia Other congenital or acquired thrombophilia Stroke (< 1 month) Elective arthroplasty Hip, pelvis, or leg fracture Acute spinal cord injury (< 1 month) Prophylaxis Regimen Total Risk Factor Score Risk Level Prophylaxis Regimen 0-1 Low Early ambulation 2 Moderate Order ONE of the following: *Sequential Compression Device (SCD) *Heparin 5000 units SQ BID 3-4 Higher Order ONE of the following medications: *Heparin 5000 units SQ TID *Enoxaparin/Lovenox 40 mg SQ daily (WT < 150 kg, CrCl > 30 mL/min) *Enoxaparin/Lovenox 30 mg SQ daily (WT < 150 kg, CrCl > 10-29 mL/min) *Enoxaparin/Lovenox 30 mg SQ BID (WT < 150 kg, CrCl > 30 mL/min) AND/OR *Sequential Compression Device (SCD) 5 or more Highest Order ONE of the following medications: *Heparin 5000 units SQ TID (Preferred with Epidurals) *Enoxaparin/Lovenox 40 mg SQ daily (WT < 150 kg, CrCl > 30 mL/min) *Enoxaparin/Lovenox 30 mg SQ daily (WT < 150 kg, CrCl > 10-29 mL/min) *Enoxaparin/Lovenox 30 mg SQ BID (WT < 150 kg, CrCl > 30 mL/min) AND *Sequential Compression Device (SCD) Assessment and Plan Assessment and Plan Fracture right hip and femur we'll consult orthopedic surgery Surgery will more than likely be delayed a day or so due to the patient taking chronic Eliquis at home Chronic alcohol abuse continue on multivitamin thiamine and folic acid and Librium Hypertension continue home medications Chronic coagulopathy possibly due to antiphospholipid antibody syndrome but the patient is not sure Cannot do Eliquis this time we'll hold Tobacco abuse continue on NicoDerm patch No DVT prophylaxis at this time since the Eliquis is on hold and has the right hip fracture GI prophylaxis Will more likely need SNF at discharge since she lives alone Code Status Full code Discussed Condition With ER physician RN and patient Physician Certification 2 Midnight Certification Type: Admission for Inpatient Services Order for Inpatient Services The services are ordered in accordance with Medicare regulations or non- Medicare payer requirements, as applicable. In the case of services not specified as inpatient-only, they are appropriately provided as inpatient services in accordance with the 2-midnight benchmark. Estimated LOS (days): 4 4 days is the estimated time the patient will need to remain in the hospital, assuming treatment plan goals are met and no additional complications. Post-Hospital Plan: Not yet determined Carlos Foley DO Apr 11, 2017 19:21
[2017-04-11 19:42] LABS: MAGNESIUM 1.3 MG/DL (1.5-2.5)
[2017-04-11 20:00] VITALS: O2SAT 98
[2017-04-11 20:59] VITALS: BP 132/78; PULSE 105; RESP 19; TEMP 98; O2SAT 98
[2017-04-11] MEDS: DOCUSATE SODIUM 50 MG/SENNA 8.6 MG TAB PO SCH (21:37)
[2017-04-11] MEDS: ATORVASTATIN 40 MG TAB PO SCH (21:37)
[2017-04-11] MEDS: POTASSIUM CHLORIDE 20 MEQ CONTROLLED RELEASE TAB PO SCH (21:37)
[2017-04-11] MEDS: FAMOTIDINE 20 MG TAB PO SCH (21:37)
[2017-04-11] MEDS: SODIUM CHLORIDE 0.9% FLUSH 10 ML FLUSH IV FLUSH SCH ×2 (21:38→22:41)
[2017-04-11] MEDS: MAGNESIUM SULFATE 1 GM PREMIX 100 ML IV SCH ×2 (21:39→22:41)
[2017-04-11] MEDS: MORPHINE SULFATE 4 MG/ML INJ IV PUSH PRN (21:39)
[2017-04-11] MEDS: amLODIPine BESYLATE 5 MG TAB PO SCH (22:40)
[2017-04-11] MEDS: THIAMINE HCL 100 MG TAB PO SCH (22:40)
[2017-04-11] MEDS: FOLIC ACID 1 MG TAB PO SCH (22:40)
[2017-04-11] MEDS: MULTIVITAMINS/MINERALS THERAPEUTIC TAB PO SCH (22:40)
[2017-04-11] MEDS: THIAMINE INJ 100 MG in SODIUM CHLORIDE 0.9% INJ 100 ML IV SCH (22:41)
[2017-04-11] MEDS: MULTIVITAMIN INJ 10 ML, FOLIC ACID INJ 1 MG in SODIUM CHLORID 0.9% 500 ML INJ 500 ML IV SCH (22:41)
[2017-04-12] VITALS (13 sets, daily range): BP systolic 99–134; BP diastolic 59–79; PULSE 86–118; RESP 18–19; TEMP 97.4–99; O2SAT 95–98
[2017-04-12] MEDS ORDERED: SODIUM CHLORID 0.9% 500 ML IV PRN (00:15)
[2017-04-12] MEDS ORDERED: CHLORHEXIDINE GLUCONATE 2 % 1 PACK (2 CLOTHS) TOPICAL PRN (00:15)
[2017-04-12] MEDS ORDERED: LACTATED RINGER'S 1000 ML IV PRN (00:15)
[2017-04-12] MEDS ORDERED: METOPROLOL TARTRATE 25 MG TAB PO PRN (00:15)
[2017-04-12] MEDS ORDERED: POVIDONE IODINE 5% (ANTISEPSIS KIT) 4 APPLICATIONS EACH NARE PRN (00:15)
[2017-04-12] MEDS: MORPHINE SULFATE 4 MG/ML INJ IV PUSH PRN ×4 (04:18→17:41)
[2017-04-12] MEDS ORDERED: ACETAMINOPHEN 1000 MG/100 ML 100 ML IV ONE (06:23)
[2017-04-12 07:04] LABS: AUTOMATED NEUTROPHIL # 6.4 TH/MM3 (1.8-7.7); BASOPHIL # 0.1 TH/MM3 (0-0.2); BASOPHIL % 0.7 % (0.0-2.0); EOSINOPHIL % 0.3 % (0.0-4.0); HEMO FLAGS DIFF FINAL; LYMPH % 15.4 % (9.0-44.0); LYMPHOCYTE # 1.3 TH/MM3 (1.0-4.8); MEAN CELL VOLUME 107.9 FL (80.0-100.0); MEAN CORPUSCULAR HEMOGLOBIN 37.2 PG (27.0-34.0); MEAN CORPUSCULAR HGB CONC 34.5 % (32.0-36.0); MONO % 9.4 % (0.0-8.0); NEUT % 74.2 % (16.0-70.0); PLATELET COUNT 132 TH/MM3 (150-450); RED BLOOD COUNT 3.06 MIL/MM3 (4.00-5.30); RED CELL DISTRIBUTION WIDTH 14.3 % (11.6-17.2); WHITE BLOOD COUNT 8.6 TH/MM3 (4.0-11.0)
--- NOTE | 2017-04-12 07:09 | PD.ORT.PN ---
Subjective Subjective Remarks s/p fall at home right hip pain. no other complaints. on eliquis at home Objective Vitals Vital Signs Date Time Temp Pulse Resp B/P (MAP) Pulse Ox O2 Delivery O2 Flow Rate FiO2 04/12/17 04:05 110 04/12/17 04:00 97.5 110 19 134/73 (93) 98 04/12/17 00:49 98 Nasal Cannula 2.00 04/12/17 00:01 118 04/12/17 00:00 98.2 115 19 99/73 (82) 97 04/11/17 20:59 98.0 105 19 132/78 (96) 98 04/11/17 20:14 04/11/17 20:00 98 Nasal Cannula 2.00 04/11/17 18:47 105 17 134/74 (94) 98 Nasal Cannula 2.00 04/11/17 15:57 98 Room Air 04/11/17 15:56 99.1 110 22 141/81 (101) 97 Room Air I/O 04/11/17 04/11/17 04/11/17 04/12/17 04/12/17 04/12/17 07:00 15:00 23:00 07:00 15:00 23:00 Intake Total 1340 ml 200 ml Balance 1340 ml 200 ml Intake Oral 240 ml IV Total 1100 ml 200 ml # Voids 1 # Bowel Movements 0 Result Diagram: 04/11/17 1556 04/11/17 1556 Other Results Laboratory Tests Test 04/11/17 15:56 04/12/17 06:11 Prothromb Time International Ratio 1.0 RATIO Prothrombin Time 10.2 SEC (9.8-11.6) Imaging Last 24 hours Impressions Hip and Pelvis X-Ray 04/11/17 1551 Signed Impressions: Service Date/Time: Tuesday, April 11, 2017 16:02 - CONCLUSION: Oblique fracture through the trochanteric and subtrochanteric region of the proximal right femur. Abelardo Combs MD Objective Remarks RLE: pain in hip with motion. no pain at knee or ankle. nvi Assessment & Plan Assessment and Plan 1) Right Subtroch Hip fx -reg diet today -npo after [place] -hold any anticoag therapy -med mgmt -sign consents -plan for surgery tomorrow for right hip fx Sb Olivas/Electronics Teacher PA Apr 12, 2017 07:09
[2017-04-12 07:11] LABS: PROTHROMBIN TIME - PATIENT 10.2 SEC (9.8-11.6)
[2017-04-12 07:52] LABS: ALKALINE PHOSPHATASE 74 U/L (45-117); ALT (GPT) 40 U/L (10-53); ANION GAP 6 MEQ/L (5-15); AST (GOT) 34 U/L (15-37); BICARBONATE 28.6 MEQ/L (21.0-32.0); BLOOD UREA NITROGEN 6 MG/DL (7-18); CHLORIDE 102 MEQ/L (98-107); FREE T4 1.33 NG/DL (0.76-1.46); GLOMERULAR FILTRATION RATE 164 ML/MIN (>89); POTASSIUM 4.3 MEQ/L (3.5-5.1); SODIUM (NA) 137 MEQ/L (136-145); TOTAL BILIRUBIN ADULT 0.9 MG/DL (0.2-1.0)
[2017-04-12] MEDS: DOCUSATE SODIUM 50 MG/SENNA 8.6 MG TAB PO SCH ×2 (07:57→20:38)
[2017-04-12] MEDS: POTASSIUM CHLORIDE 20 MEQ CONTROLLED RELEASE TAB PO SCH ×2 (07:57→20:39)
[2017-04-12] MEDS: MULTIVITAMINS/MINERALS THERAPEUTIC TAB PO SCH (07:57)
[2017-04-12] MEDS: FAMOTIDINE 20 MG TAB PO SCH ×2 (07:57→20:38)
[2017-04-12] MEDS: FOLIC ACID 1 MG TAB PO SCH (07:57)
[2017-04-12] MEDS: amLODIPine BESYLATE 5 MG TAB PO SCH (07:57)
--- NOTE | 2017-04-12 08:01 | MB ---
cc: JUSTIN MANUEL,DARRIUS DATE OF CONSULTATION: 04/12/2017 REASON FOR CONSULTATION Right hip intertrochanteric fracture. CONSULTING PHYSICIAN Dr. Darrius Foley. HISTORY OF PRESENT ILLNESS Olinda is a 57-year-old female who had a fall this morning. She states that she tripped over her own feet. She landed on her right side. She had difficulty getting up. She called for assistance to get up to a chair. She was still unable to ambulate a few hours later. She called EMS again and was brought to the emergency room. She presented to the emergency room where x-rays revealed a right hip intertrochanteric fracture. She states that she drinks vodka every day. She smokes approximately six cigarettes a day. Her only complaint is her right hip. Pain is worse with movement. She denies dizziness, syncope or loss of consciousness.. PAST MEDICAL HISTORY ILLNESSES 1. Hypertension. 2. High cholesterol. 3. Arthritis. 4. Anticoagulation with Eliquis. SURGERIES 1. History of D&C. 2. Left ankle ORIF. 3. Cervical biopsy. MEDICATIONS 1. Simvastatin. 2. Norvasc. 3. Eliquis. ALLERGIES No known drug allergies. SOCIAL HISTORY The patient smokes six cigarettes a day. She drinks a pint of vodka daily. FAMILY HISTORY Positive for hypertension. REVIEW OF SYSTEMS The patient denies headache, visual changes, neck pain, chest pain, shortness of breath, abdominal pain, nausea, vomiting, recent weight loss, numbness or tingling of extremities. She complains of right hip pain. Pain is worse with movement. PHYSICAL EXAMINATION GENERAL: The patient is a well-developed, well-nourished 57-year-old female who is mildly overweight. She is awake and alert. She is alert and oriented x3. VITAL SIGNS: Temperature 97.5, pulse 110, respirations 19, blood pressure 134/73. O2 sat is 98% on two liters nasal cannula. HEAD: The patient is normocephalic. Pupils are equal. NECK: Soft, nontender. Trachea is midline. ABDOMEN: Soft, nontender, nondistended. EXTREMITIES: Examination of bilateral upper extremities reveals no pain with shoulder, elbow or wrist motion. She has intact sensation in all fingers. She has good capillary refill in all fingers. Skin is intact. Radial pulses are palpable. Examination of left leg reveals no pain with hip, knee or ankle motion. Skin is intact. Dorsalis pedis pulse is palpable. Sensation is intact. Examination of right leg reveals pain with any hip motion. Her right leg is shortened. She has no tenderness around her knee tibia or ankle. Skin is intact. Dorsalis pedis pulse is palpable. Sensation is intact in the right foot. X-RAYS X-rays of right hip were reviewed. X-rays reveal a displaced right hip intertrochanteric fracture. She also appears to have some avascular necrosis of her right femoral head. IMPRESSION 1. Alcohol abuse. 2. Tobacco abuse. 3. Right hip intertrochanteric fracture. 4. Right hip avascular necrosis. PLAN The treatment options were discussed with the patient. At this point I would recommend reduction and intramedullary fixation of right proximal femur. The risks of surgery include bleeding, infection, injuries to arteries, nerves and blood vessels, nonunion, malunion, painful hardware, need for hip replacement as well as medical complications including blood clot, stroke, heart attack and . All questions were answered. I will plan on surgery today. A mid-level provider in my office, nurse practitioner or PA, may see this patient on a follow-up basis and continue to implement the objective of this plan including: Starting or adjusting medications, injections of muscle, tendon, bursa or joints, cast application, orthotic or brace application, physical therapy, further radiographic studies including x-ray, MRI, CT, ultrasounds or bone scan, vascular studies, neurologic studies, or other specialist consultations, and proceeding with surgical management as appropriate. MD MIGUEL Thorpe/KIANNA /7:36 AM /7:42 AM
[2017-04-12] MEDS: THIAMINE HCL 100 MG TAB PO SCH (08:11)
[2017-04-12] MEDS: NICOTINE 7 MG/24 HR PATCH T-DERMAL SCH (08:15)
--- NOTE | 2017-04-12 08:40 | HHI.PR ---
Subjective Remarks Status post Fall with Secondary Right Intertrochanteric Fracture, This is a pleasant 49 y/o Female, has history of chronic alcoholism, Hypertension and chronic blood clots on Eliquis. stable in her bedroom, Nurse Miss Corrales, her Niece Miss Neely present. Objective Vital Signs Date Time Temp Pulse Resp B/P (MAP) Pulse Ox O2 Delivery O2 Flow Rate FiO2 04/12/17 08:00 97.4 110 18 113/59 (77) 98 04/12/17 07:39 97 21 04/12/17 04:05 110 04/12/17 04:00 97.5 110 19 134/73 (93) 98 04/12/17 00:49 98 Nasal Cannula 2.00 04/12/17 00:01 118 04/12/17 00:00 98.2 115 19 99/73 (82) 97 04/11/17 20:59 98.0 105 19 132/78 (96) 98 04/11/17 20:14 04/11/17 20:00 98 Nasal Cannula 2.00 04/11/17 18:47 105 17 134/74 (94) 98 Nasal Cannula 2.00 04/11/17 15:57 98 Room Air 04/11/17 15:56 99.1 110 22 141/81 (101) 97 Room Air I/O 04/11/17 04/11/17 04/11/17 04/12/17 04/12/17 04/12/17 07:00 15:00 23:00 07:00 15:00 23:00 Intake Total 1340 ml 200 ml Balance 1340 ml 200 ml Intake Oral 240 ml 0 ml IV Total 1100 ml 200 ml # Voids 1 2 # Bowel Movements 0 0 Result Diagram: 04/12/17 0611 04/12/17 0611 Imaging Last Impressions Hip and Pelvis X-Ray 04/11/17 1551 Signed Impressions: Service Date/Time: Tuesday, April 11, 2017 16:02 - CONCLUSION: Oblique fracture through the trochanteric and subtrochanteric region of the proximal right femur. Abelardo Combs MD Procedures None Other Results Laboratory Tests Test 04/11/17 15:56 04/11/17 17:34 04/12/17 06:11 Activated Partial Thromboplast Time 23.8 SEC Ethyl Alcohol Level 133 MG/DL Urine Color YELLOW Urine Turbidity HAZY Urine pH 5.5 Urine Specific [place] 1.015 Urine Protein 30 mg/dL Urine Glucose (UA) NEG mg/dL Urine Ketones 10 mg/dL Urine Occult Blood NEG Urine Nitrite NEG Urine Bilirubin NEG Urine Urobilinogen LESS THAN 2.0 MG/DL Urine Leukocyte Esterase NEG Urine RBC 1 /hpf Urine WBC 3 /hpf Urine Squamous Epithelial Cells 3 /hpf Urine Bacteria RARE /hpf Urine Hyaline Casts 35 /lpf Urine Mucus FEW /lpf Microscopic Urinalysis Comment CATH-CULTURE IND White Blood Count 8.6 TH/MM3 Red Blood Count 3.06 MIL/MM3 Hemoglobin 11.4 GM/DL Hematocrit 33.0 % Mean Corpuscular Volume 107.9 FL Mean Corpuscular Hemoglobin 37.2 PG Mean Corpuscular Hemoglobin Concent 34.5 % Red Cell Distribution Width 14.3 % Platelet Count 132 TH/MM3 Mean Platelet Volume 6.7 FL Neutrophils (%) (Auto) 74.2 % Lymphocytes (%) (Auto) 15.4 % Monocytes (%) (Auto) 9.4 % Eosinophils (%) (Auto) 0.3 % Basophils (%) (Auto) 0.7 % Neutrophils # (Auto) 6.4 TH/MM3 Lymphocytes # (Auto) 1.3 TH/MM3 Monocytes # (Auto) 0.8 TH/MM3 Eosinophils # (Auto) 0.0 TH/MM3 Basophils # (Auto) 0.1 TH/MM3 CBC Comment DIFF FINAL Differential Comment Prothrombin Time 10.2 SEC Prothromb Time International Ratio 1.0 RATIO Blood Urea Nitrogen 6 MG/DL Creatinine 0.40 MG/DL Random Glucose 108 MG/DL Total Protein 6.2 GM/DL Albumin 2.8 GM/DL Calcium Level 7.6 MG/DL Phosphorus Level 2.8 MG/DL Magnesium Level 2.0 MG/DL Alkaline Phosphatase 74 U/L Aspartate Amino Transf (AST/SGOT) 34 U/L Alanine Aminotransferase (ALT/SGPT) 40 U/L Total Bilirubin 0.9 MG/DL Sodium Level 137 MEQ/L Potassium Level 4.3 MEQ/L Chloride Level 102 MEQ/L Carbon Dioxide Level 28.6 MEQ/L Anion Gap 6 MEQ/L Estimat Glomerular Filtration Rate 164 ML/MIN Free Thyroxine 1.33 NG/DL Thyroid Stimulating Hormone 3rd Gen 3.390 uIU/ML Objective Remarks GENERAL: Obese patient EYES: Pupils equal round and reactive. Extraocular motions intact. ENT: wet mucous membranes. NECK: Trachea midline. No JVD or lymphadenopathy. Supple, nontender, no meningeal signs. CARDIOVASCULAR: Regular rate and rhythm without murmurs, gallops, or rubs. S1 and S2 no S3 or S4 RESPIRATORY: Clear to auscultation. Breath sounds equal bilaterally. No wheezes , rales, or rhonchi. GASTROINTESTINAL: Abdomen soft, non-tender, nondistended. No hepato-splenomegaly , or palpable masses. No guarding. MUSCULOSKELETAL: Tender right hip with decreased and shortened and externally rotated right hip NEUROLOGICAL: Awake and alert.No focal deficits. Medications and IVs Current Medications Medications (Trade) Dose Ordered Sig/Stephanie Route Start Time Stop Time Status Last Admin (NS Flush) 2 ml UNSCH PRN IVF 04/11/17 16:00 (NS Flush) 2 ml UNSCH PRN IV FLUSH 04/11/17 18:45 04/12/17 04:18 (NS Flush) 2 ml BID IV FLUSH 04/11/17 21:00 04/11/17 21:38 (Tylenol) 650 mg Q4H PRN PO 04/11/17 18:45 (Zofran Inj) 4 mg Q6H PRN IVP 04/11/17 18:45 (Compazine Supp) 25 mg Q12H PRN RECTAL 04/11/17 18:45 (Ambien) 5 mg HS PRN PO 04/11/17 18:45 (Motrin) 400 mg Q6H PRN PO 04/11/17 18:45 (Roxicodone) 10 mg Q4H PRN PO 04/11/17 18:45 04/12/17 07:53 (Morphine Inj) 2 mg Q3H PRN IV PUSH 04/11/17 18:45 (Morphine Inj) 4 mg Q3H PRN IV PUSH 04/11/17 18:45 04/12/17 07:53 (Morphine Inj) 4 mg Q3H PRN IV PUSH 04/11/17 18:45 (Roxicodone) 5 mg Q4H PRN PO 04/11/17 18:45 (Narcan Inj) 0.4 mg UNSCH PRN IV PUSH 04/11/17 18:45 (Tarsha-Colace) 1 tab BID PO 04/11/17 21:00 04/12/17 07:57 (Milk Of Magnesia Liq) 30 ml Q12H PRN PO 04/11/17 18:45 (Senokot) 17.2 mg Q12H PRN PO 04/11/17 18:45 04/11/17 21:38 (Dulcolax Supp) 10 mg DAILY PRN RECTAL 04/11/17 18:45 (Lactulose Liq) 30 ml DAILY PRN PO 04/11/17 18:45 (Romazicon Inj) 0.2 mg Q1M PRN IV PUSH 04/11/17 18:45 (Ativan) 1 mg Q4H PRN PO 04/11/17 18:45 (Ativan Inj) 1 mg Q4H PRN IV PUSH 04/11/17 18:45 (Ativan) 2 mg Q2H PRN PO 04/11/17 18:45 (Ativan Inj) 2 mg Q2H PRN IV PUSH 04/11/17 18:45 (Ativan Inj) 2 mg Q1H PRN IV PUSH 04/11/17 18:45 (Ativan Inj) 2 mg Q15M PRN IV PUSH 04/11/17 18:45 (NS Flush) 2 ml UNSCH PRN IV FLUSH 04/11/17 18:45 (NS Flush) 2 ml BID IV FLUSH 04/11/17 21:00 04/11/17 22:41 (Folate) 1 mg DAILY PO 04/11/17 18:45 04/16/17 18:44 04/12/17 07:57 (Vitamin B1) 100 mg DAILY PO 04/11/17 18:45 04/12/17 08:11 (Theragran M Tab) 1 tab DAILY PO 04/11/17 18:45 04/16/17 18:44 04/12/17 07:57 Multivitamins 10 ml/Folic Acid 1 mg/Sodium Chloride 510.2 ml @ 125 mls/hr Q24H IV 04/11/17 20:00 04/16/17 19:59 04/11/17 22:41 Thiamine HCl 100 mg/Sodium Chloride 101 ml @ 100 mls/hr Q24H IV 04/11/17 20:00 04/14/17 19:59 04/11/17 22:41 (Vitamin B1) 100 mg DAILY PO 04/15/17 09:00 (Pepcid) 20 mg BID PO 04/11/17 21:00 04/12/17 07:57 (Catapres) 0.1 mg Q6H PRN PO 04/11/17 18:45 (Haldol Inj) 2 mg Q15M PRN IM 04/11/17 18:45 (Habitrol 7 Mg Patch.24 Hr) 1 patch DAILY T-DERMAL 04/12/17 09:00 Miscellaneous Information 1 DAILY T-DERMAL 04/12/17 09:00 (Librium) 50 mg Q6H PRN PO 04/11/17 19:00 (Norvasc) 10 mg DAILY PO 04/11/17 19:00 04/12/17 07:57 (Lipitor) 40 mg HS PO 04/11/17 21:00 04/11/17 21:37 (KCl) 40 meq Q12HR PO 04/11/17 21:00 04/13/17 21:00 04/12/17 07:57 Lactated Ringer's 1,000 ml @ 30 mls/hr Q24H PRN IV 04/12/17 00:15 04/15/17 00:14 Sodium Chloride 500 ml @ 30 mls/hr [id number] PRN IV 04/12/17 00:15 04/15/17 00:14 (Lopressor) [address] PRN PO 04/12/17 00:15 04/15/17 00:14 (Betadine 5% Antisepsis Kit) [address] CLEANER PRN EACH NARE 04/12/17 00:15 04/15/17 00:14 (Chlorhexidine 2% Cloth) [address] PRN TOPICAL 04/12/17 00:15 04/15/17 00:14 A/P Assessment and Plan Fracture right hip and femur, Orthopedic surgery following for Right Hip arthroplasty tomorrow. Surgery will more than likely be delayed a day or so due to the patient taking chronic Eliquis at home Chronic alcohol abuse continue on multivitamin thiamine and folic acid and Librium, CIWA protocol. Hypertension continue home medications Chronic coagulopathy possibly due to antiphospholipid antibody syndrome but the patient is not sure Cannot do Eliquis this time we'll hold Tobacco abuse continue on NicoDerm patch, Bronchodilator, Mucolytic and incentive spirometry. Obesity strongly recommended diet and exercise as outpatient. No DVT prophylaxis at this time since the Eliquis is on hold and has the right hip fracture GI prophylaxis Discharge Planning Once cleared by Orthopedic surgery. Ortiz Sims MD Apr 12, 2017 08:40
[2017-04-12] MEDS: REMOVE OLD PATCH T-DERMAL SCH (09:00)
[2017-04-12] MEDS: SODIUM CHLORIDE 0.9% FLUSH 10 ML FLUSH IV FLUSH SCH ×3 (09:00→20:47)
[2017-04-12] MEDS: RESP: ALBUTEROL 2.5 MG/IPRATROPIUM 0.5 MG NEB (SCH) NEB ×2 (16:33→21:41)
[2017-04-12 16:41] LABS: HEMOGLOBIN A1a 1.3 %; HEMOGLOBIN A1b 1.3 %; HEMOGLOBIN F 0.4 %; HEMOGLOBIN LA1C 2.1 %; HEMOGLOBIN P3 3.6 %
--- NOTE | 2017-04-12 20:04 | EKG ---
Date Performed: 04/12/2017 Time Performed: 07:21:41 PTAGE: 57 years EKG: SINUS TACHYCARDIA ABNORMAL RHYTHM ECG PREVIOUS TRACING : 11/20/2015 20.38 SINCE PRIOR TRACING SINUS HEART RATE IS FASTER AND LIMB KAROLINA D REVERSAL HAS BEEN CORRECTED. DOCTOR: Agusto Madison Interpretating Date/Time 04/12/2017 20:03:37
[2017-04-12] MEDS: guaiFENesin E.R. 600 MG TAB PO SCH (20:38)
[2017-04-12] MEDS: ATORVASTATIN 40 MG TAB PO SCH (20:39)
[2017-04-12] MEDS: THIAMINE INJ 100 MG in SODIUM CHLORIDE 0.9% INJ 100 ML IV SCH (20:40)
[2017-04-12] MEDS: MULTIVITAMIN INJ 10 ML, FOLIC ACID INJ 1 MG in SODIUM CHLORID 0.9% 500 ML INJ 500 ML IV SCH (20:40)
[2017-04-13] VITALS (7 sets, daily range): BP systolic 105–120; BP diastolic 59–71; PULSE 108–118; RESP 16–19; TEMP 97.5–99; O2SAT 92–98
[2017-04-13] MEDS: MORPHINE SULFATE 4 MG/ML INJ IV PUSH PRN ×3 (01:55→14:32)
[2017-04-13] MEDS: RESP: ALBUTEROL 2.5 MG/IPRATROPIUM 0.5 MG NEB (SCH) NEB ×4 (03:04→21:40)
--- NOTE | 2017-04-13 06:46 | PD.ORT.PN ---
Subjective Subjective Remarks Pain controlled Objective Vitals Vital Signs Date Time Temp Pulse Resp B/P (MAP) Pulse Ox O2 Delivery O2 Flow Rate FiO2 04/13/17 03:20 98.8 115 18 113/62 (79) 95 04/12/17 23:50 98.9 87 18 108/67 (81) 96 04/12/17 21:44 98 04/12/17 20:58 18 04/12/17 20:16 98.8 86 18 123/59 (80) 97 04/12/17 16:00 99.0 115 18 128/79 (95) 95 04/12/17 12:00 98.7 110 18 125/74 (91) 96 04/12/17 08:00 97.4 110 18 113/59 (77) 98 04/12/17 07:39 97 21 04/12/17 07:20 110 I/O 04/12/17 04/12/17 04/12/17 04/13/17 04/13/17 04/13/17 07:00 15:00 23:00 07:00 15:00 23:00 Intake Total 200 ml 960 ml 480 ml 0 ml Balance 200 ml 960 ml 480 ml 0 ml Intake Oral 0 ml 960 ml 480 ml 0 ml IV Total 200 ml # Voids 2 6 6 6 # Bowel Movements 0 0 0 0 Result Diagram: 04/12/17 0611 04/12/17 0611 Imaging Last 24 hours Impressions Hip and Pelvis X-Ray 04/11/17 1551 Signed Impressions: Service Date/Time: Tuesday, April 11, 2017 16:02 - CONCLUSION: Oblique fracture through the trochanteric and subtrochanteric region of the proximal right femur. Abelardo Combs MD Objective Remarks RLE: pain in hip with motion. no pain at knee or ankle. nvi Assessment & Plan Assessment and Plan 1) Right Subtroch Hip fx -npo -hold any anticoag therapy -med mgmt -sign consents -plan for surgery today for right hip fx Elian Gibbs Jr. Apr 13, 2017 06:46
[2017-04-13] MEDS: VANCOMYCIN HCL 1000 MG VIAL ONE ×2 (07:43→08:47)
[2017-04-13] MEDS: ceFAZolin INJ 1,000 MG VIAL ONE ×2 (07:43→08:47)
[2017-04-13] MEDS ORDERED: VITA500012 PO (08:04)
[2017-04-13] MEDS ORDERED: XARE10TA PO (08:04)
[2017-04-13] MEDS ORDERED: WALKER WHEELS/F1 MIS (08:04)
[2017-04-13] MEDS ORDERED: HYDR-3583 PO (08:04)
[2017-04-13] MEDS ORDERED: CALCTAB19 PO (08:04)
[2017-04-13] MEDS ORDERED: ASPI-183 PO (08:09)
--- NOTE | 2017-04-13 08:16 | PD.OP ---
cc: Levi Jason MD Operative Report Date of Surgery: Apr 13, 2017 Preoperative Diagnosis: Displaced right proximal femur fracture Postoperative Diagnosis: Procedure: Reduction and intramedullary nail fixation right femur Anesthesia: Gen. Surgeon: Levi Jason Redipper(s): VJ Marie PA-C The surgical procedure was assisted by my physician claims assistant. My P.A. presence was necessary throughout this case for the manipulation and positioning of the surgical extremity. My P.A. was assisting me throughout the duration of this procedure. The skill set of a physician claims assistant was medically necessary to complete this procedure. During the surgical case the regional vice president surgical sales was working at the back table and the physician claims assistant was directly assisting me. Operation and Findings: Implants used: [11]mm x [380]mm Synthes TFNA troch nail Plan of activity: 50% weightbearing right leg 4 weeks Patient was seen and evaluated preoperatively. The patient has significant hip pain from proximal femur fracture. The risk and benefits of surgery were discussed in depth with the patient to include bleeding, infection, nonunion, malunion, need for hip replacement, painful hardware, as well as medical competitions including blood clots, stroke, heart attack, and . Informed consent was obtained. Operative site was marked. Patient was brought to the operating room and placed on fracture table. IV sedation was administered by anesthesiologist. Timeout procedure was performed. Hip and leg were prepped with alcohol followed by DuraPrep and draped in the usual sterile fashion. IV antibiotics were given prior to incision. Procedure began with reduction of fracture. Traction was applied. The leg was manipulated to achieve reduction. Excellent reduction was achieved. Fluoroscopy was used to confirm reduction. A three inch incision was made proximal to the trochanter. Subcutaneous tissue was dissected bluntly. Guidepin was placed at the tip of the trochanter and advanced into the femoral canal. Fluoroscopy confirmed appropriate guidepin placement. A opening reamer was placed over the guidepin. A long ball tipped guide pin was now placed down the femoral canal into the center of the distal femur. The nail length was now measured. Fluoroscopy confirmed appropriate guidepin placement. Flexible reamers were now passed over the guidepin to ream the intramedullary canal. The Synthes TFNA nail was attached to the insertion handle. Nail was now placed over the guidepin into the femoral canal. Fluoroscopy confirmed appropriate nail placement. A second incision was made over the lateral thigh. Cannulas were placed through the insertion handle down to the femur. Guidepin was now placed through the femoral nail into the center of the femoral head. Fluoroscopy confirmed appropriate guidepin placement. Screw length was measured. Cannulated drill was placed over the guidepin. Appropriate length lag screw was now placed. Traction was released and compression was applied. The set screw was now tightened in dynamic mode. Next, using perfect [place] technique two distal interlocking screws were placed. Screw holes were predrilled and screw lengths were measured. Final fluoroscopy revealed well aligned fracture with well-placed hardware. Incision was closed with 3-0 Vicryl and rocky. Sterile dressings were applied. Patient was awakened and transferred to recovery room. Levi Jason MD Apr 13, 2017 08:16
--- NOTE | 2017-04-13 08:17 | HHI.PR ---
Subjective Remarks Status post Fall with Secondary Right Intertrochanteric Fracture, This is a pleasant 49 y/o Female, has history of chronic alcoholism, Hypertension and chronic blood clots on Eliquis. stable in her bedroom, Nurse Miss Corrales, her Niece Miss Neely present. 04/13: with Diagnosis of displaced right proximal femur fracture, status post Reduction and intramedullary nail fixation right femur by doctor Levi Jason 04/13/17. no nausea, vomit or diarrhea. Objective Vital Signs Date Time Temp Pulse Resp B/P (MAP) Pulse Ox O2 Delivery O2 Flow Rate FiO2 04/13/17 03:20 98.8 115 18 113/62 (79) 95 04/12/17 23:50 98.9 87 18 108/67 (81) 96 04/12/17 21:44 98 04/12/17 20:58 18 04/12/17 20:16 98.8 86 18 123/59 (80) 97 04/12/17 16:00 99.0 115 18 128/79 (95) 95 04/12/17 12:00 98.7 110 18 125/74 (91) 96 I/O 04/12/17 04/12/17 04/12/17 04/13/17 04/13/17 04/13/17 06:59 14:59 22:59 06:59 14:59 22:59 Intake Total 200 ml 960 ml 581 ml 1070.2 ml Balance 200 ml 960 ml 581 ml 1070.2 ml Intake Oral 0 ml 960 ml 480 ml 0 ml IV Total 200 ml 101 ml 1070.2 ml # Voids 2 6 6 6 # Bowel Movements 0 0 0 0 Result Diagram: 04/12/17 0611 04/12/17 0611 Imaging Last Impressions Hip and Pelvis X-Ray 04/11/17 1551 Signed Impressions: Service Date/Time: Tuesday, April 11, 2017 16:02 - CONCLUSION: Oblique fracture through the trochanteric and subtrochanteric region of the proximal right femur. Abelardo Combs MD Procedures Diagnosis of displaced right proximal femur fracture, status post Reduction and intramedullary nail fixation right femur by doctor Levi Jason 04/13/17. Other Results Laboratory Tests Test 04/11/17 15:56 04/11/17 17:34 04/12/17 06:11 Activated Partial Thromboplast Time 23.8 SEC Ethyl Alcohol Level 133 MG/DL Urine Color YELLOW Urine Turbidity HAZY Urine pH 5.5 Urine Specific [place] 1.015 Urine Protein 30 mg/dL Urine Glucose (UA) NEG mg/dL Urine Ketones 10 mg/dL Urine Occult Blood NEG Urine Nitrite NEG Urine Bilirubin NEG Urine Urobilinogen LESS THAN 2.0 MG/DL Urine Leukocyte Esterase NEG Urine RBC 1 /hpf Urine WBC 3 /hpf Urine Squamous Epithelial Cells 3 /hpf Urine Bacteria RARE /hpf Urine Hyaline Casts 35 /lpf Urine Mucus FEW /lpf Microscopic Urinalysis Comment CATH-CULTURE IND White Blood Count 8.6 TH/MM3 Red Blood Count 3.06 MIL/MM3 Hemoglobin 11.4 GM/DL Hematocrit 33.0 % Mean Corpuscular Volume 107.9 FL Mean Corpuscular Hemoglobin 37.2 PG Mean Corpuscular Hemoglobin Concent 34.5 % Red Cell Distribution Width 14.3 % Platelet Count 132 TH/MM3 Mean Platelet Volume 6.7 FL Neutrophils (%) (Auto) 74.2 % Lymphocytes (%) (Auto) 15.4 % Monocytes (%) (Auto) 9.4 % Eosinophils (%) (Auto) 0.3 % Basophils (%) (Auto) 0.7 % Neutrophils # (Auto) 6.4 TH/MM3 Lymphocytes # (Auto) 1.3 TH/MM3 Monocytes # (Auto) 0.8 TH/MM3 Eosinophils # (Auto) 0.0 TH/MM3 Basophils # (Auto) 0.1 TH/MM3 CBC Comment DIFF FINAL Differential Comment Prothrombin Time 10.2 SEC Prothromb Time International Ratio 1.0 RATIO Blood Urea Nitrogen 6 MG/DL Creatinine 0.40 MG/DL Random Glucose 108 MG/DL Total Protein 6.2 GM/DL Albumin 2.8 GM/DL Calcium Level 7.6 MG/DL Phosphorus Level 2.8 MG/DL Magnesium Level 2.0 MG/DL Alkaline Phosphatase 74 U/L Aspartate Amino Transf (AST/SGOT) 34 U/L Alanine Aminotransferase (ALT/SGPT) 40 U/L Total Bilirubin 0.9 MG/DL Sodium Level 137 MEQ/L Potassium Level 4.3 MEQ/L Chloride Level 102 MEQ/L Carbon Dioxide Level 28.6 MEQ/L Anion Gap 6 MEQ/L Estimat Glomerular Filtration Rate 164 ML/MIN Hemoglobin A1c 5.8 % Free Thyroxine 1.33 NG/DL Thyroid Stimulating Hormone 3rd Gen 3.390 uIU/ML Objective Remarks GENERAL: Obese patient EYES: Pupils equal round and reactive. Extraocular motions intact. ENT: wet mucous membranes. NECK: Trachea midline. No JVD or lymphadenopathy. Supple, nontender, no meningeal signs. CARDIOVASCULAR: Regular rate and rhythm without murmurs, gallops, or rubs. S1 and S2 no S3 or S4 RESPIRATORY: Clear to auscultation. Breath sounds equal bilaterally. No wheezes , rales, or rhonchi. GASTROINTESTINAL: Abdomen soft, non-tender, nondistended. No hepato-splenomegaly , or palpable masses. No guarding. MUSCULOSKELETAL: Tender right hip with decreased and shortened and externally rotated right hip NEUROLOGICAL: Awake and alert.No focal deficits. Medications and IVs Current Medications Medications (Trade) Dose Ordered Sig/Stephanie Route Start Time Stop Time Status Last Admin (Tylenol) 650 mg Q4H PRN PO 04/11/17 18:45 (Zofran Inj) 4 mg Q6H PRN IVP 04/11/17 18:45 (Compazine Supp) 25 mg Q12H PRN RECTAL 04/11/17 18:45 (Ambien) 5 mg HS PRN PO 04/11/17 18:45 (Motrin) 400 mg Q6H PRN PO 04/11/17 18:45 (Roxicodone) 10 mg Q4H PRN PO 04/11/17 18:45 04/12/17 21:49 (Morphine Inj) 2 mg Q3H PRN IV PUSH 04/11/17 18:45 (Morphine Inj) 4 mg Q3H PRN IV PUSH 04/11/17 18:45 04/13/17 06:10 (Morphine Inj) 4 mg Q3H PRN IV PUSH 04/11/17 18:45 04/12/17 20:53 (Roxicodone) 5 mg Q4H PRN PO 04/11/17 18:45 (Narcan Inj) 0.4 mg UNSCH PRN IV PUSH 04/11/17 18:45 (Tarsha-Colace) 1 tab BID PO 04/11/17 21:00 04/12/17 20:38 (Milk Of Magnesia Liq) 30 ml Q12H PRN PO 04/11/17 18:45 (Senokot) 17.2 mg Q12H PRN PO 04/11/17 18:45 04/11/17 21:38 (Dulcolax Supp) 10 mg DAILY PRN RECTAL 04/11/17 18:45 (Lactulose Liq) 30 ml DAILY PRN PO 04/11/17 18:45 (Romazicon Inj) 0.2 mg Q1M PRN IV PUSH 04/11/17 18:45 (Ativan) 1 mg Q4H PRN PO 04/11/17 18:45 (Ativan Inj) 1 mg Q4H PRN IV PUSH 04/11/17 18:45 (Ativan) 2 mg Q2H PRN PO 04/11/17 18:45 (Ativan Inj) 2 mg Q2H PRN IV PUSH 04/11/17 18:45 (Ativan Inj) 2 mg Q1H PRN IV PUSH 04/11/17 18:45 (Ativan Inj) 2 mg Q15M PRN IV PUSH 04/11/17 18:45 (NS Flush) 2 ml UNSCH PRN IV FLUSH 04/11/17 18:45 (NS Flush) 2 ml BID IV FLUSH 04/11/17 21:00 04/12/17 20:47 (Folate) 1 mg DAILY PO 04/11/17 18:45 04/16/17 18:44 04/12/17 07:57 (Theragran M Tab) 1 tab DAILY PO 04/11/17 18:45 04/16/17 18:44 04/12/17 07:57 Multivitamins 10 ml/Folic Acid 1 mg/Sodium Chloride 510.2 ml @ 125 mls/hr Q24H IV 04/11/17 20:00 04/16/17 19:59 04/12/17 20:40 Thiamine HCl 100 mg/Sodium Chloride 101 ml @ 100 mls/hr Q24H IV 04/11/17 20:00 04/14/17 19:59 04/12/17 20:40 (Vitamin B1) 100 mg DAILY PO 04/15/17 09:00 (Pepcid) 20 mg BID PO 04/11/17 21:00 04/12/17 20:38 (Catapres) 0.1 mg Q6H PRN PO 04/11/17 18:45 (Haldol Inj) 2 mg Q15M PRN IM 04/11/17 18:45 (Habitrol 7 Mg Patch.24 Hr) 1 patch DAILY T-DERMAL 04/12/17 09:00 Miscellaneous Information 1 DAILY T-DERMAL 04/12/17 09:00 (Librium) 50 mg Q6H PRN PO 04/11/17 19:00 (Norvasc) 10 mg DAILY PO 04/11/17 19:00 04/12/17 07:57 (Lipitor) 40 mg HS PO 04/11/17 21:00 04/12/17 20:39 (KCl) 40 meq Q12HR PO 04/11/17 21:00 04/13/17 21:00 04/12/17 20:39 Lactated Ringer's 1,000 ml @ 30 mls/hr Q24H PRN IV 04/12/17 00:15 04/15/17 00:14 Sodium Chloride 500 ml @ 30 mls/hr [id number] PRN IV 04/12/17 00:15 04/15/17 00:14 (Lopressor) 25 mg SPICE GRINDER PRN PO 04/12/17 00:15 04/15/17 00:14 (Betadine 5% Antisepsis Kit) 1 applic SPICE GRINDER PRN EACH NARE 04/12/17 00:15 04/15/17 00:14 (Chlorhexidine 2% Cloth) 3 pack SPICE GRINDER PRN TOPICAL 04/12/17 00:15 04/15/17 00:14 (Duoneb Neb) 1 ampule Q6HR NEB NEB 04/12/17 16:00 04/13/17 03:04 (Mucinex Er) 600 mg BID PO 04/12/17 21:00 04/12/17 20:38 Cefazolin Sodium 1000 mg/Sodium Chloride 100 ml @ 200 mls/hr Q8H IV 04/13/17 08:15 04/14/17 00:44 UNV (Oscal-D 250-125) 250 mg TID PO 04/13/17 09:00 UNV (Benadryl) 25 mg Q6H PRN PO 04/13/17 08:15 UNV (Morphine Inj) 4 mg Q3H PRN IV PUSH 04/13/17 08:15 UNV (Vitamin D3) 5,000 units DAILY PO 04/13/17 09:00 UNV (Drisdol) 50,000 units ONCE ONCE PO 04/13/17 08:15 04/13/17 08:16 UNV (Eliquis) 5 mg BID PO 04/13/17 09:00 UNV A/P Assessment and Plan Fracture right hip and femur, Orthopedic surgery following for Right Hip arthroplasty today Surgery will more than likely be delayed a day or so due to the patient taking chronic Eliquis at home Chronic alcohol abuse continue on multivitamin thiamine and folic acid and Librium, CIWA protocol. Hypertension continue home medications Chronic coagulopathy possibly due to antiphospholipid antibody syndrome but the patient is not sure Cannot do Eliquis this time we'll hold Tobacco abuse continue on NicoDerm patch, Bronchodilator, Mucolytic and incentive spirometry. Obesity strongly recommended diet and exercise as outpatient. DVT prophylaxis with Eliquis GI prophylaxis Discharge Planning Once cleared by Orthopedic surgery. Ortiz Sims MD Apr 13, 2017 08:17
[2017-04-13] MEDS ORDERED: ACETAMINOPHEN 1000 MG/100 ML 100 ML IV ONE (08:27)
[2017-04-13] MEDS ORDERED: diphenhydrAMINE HCL 25 MG CAP PO PRN (08:45)
[2017-04-13] MEDS: BUPIVACAINE/EPINEPHRINE 0.25% PF 30 ML VIAL ONE ×2 (08:49→09:20)
[2017-04-13] MEDS ORDERED: APIXABAN 5 MG TABLET PO SCH (09:00)
[2017-04-13] MEDS: amLODIPine BESYLATE 5 MG TAB PO SCH (09:00)
[2017-04-13] MEDS: REMOVE OLD PATCH T-DERMAL SCH (09:00)
[2017-04-13] MEDS: NICOTINE 7 MG/24 HR PATCH T-DERMAL SCH (09:00)
[2017-04-13] MEDS ORDERED: GENTAMICIN SULFATE 80 MG/2 ML VIAL ONE (09:10)
--- NOTE | 2017-04-13 09:32 | RADRPT ---
EXAM DATE/TIME: 04/13/2017 09:08 [facility] COMPARISON: HIP RIGHT (AP&LAT 2/3VWS) W AP PELVIS, April 11, 2017, 16:02. INDICATIONS : ORIF right hip fracture. MEDICAL HISTORY : Unobtainable. SURGICAL HISTORY : Unobtainable. ENCOUNTER: Subsequent ACUITY: 1 day PAIN SCORE: Non-responsive. LOCATION: Right hip FINDINGS: 5 intraoperative fluoroscopic images are provided. There has been interval intramedullary jada and com pression screw fixation of previously noted intertrochanteric right femoral neck fracture. Hardware i s well-positioned and there is near-anatomic alignment. No new bony fractures. CONCLUSION: 1. Status post right hip ORIF in anatomic alignment without new fractures. Carrillo Vasquez MD on April 13, 2017 at 9:29 Board Certified Radiologist. This report was verified electronically.
[2017-04-13] MEDS: SODIUM CHLORIDE 0.9% FLUSH 10 ML FLUSH IV FLUSH SCH ×2 (09:40→22:42)
[2017-04-13] MEDS ORDERED: *morphine SULFATE 8 MG/ML PERIprocedure ONLY ONE ×2 (09:48→10:17)
[2017-04-13] MEDS: CALCIUM/VITAMIN D 250 MG/125 U TAB PO SCH ×3 (13:00→18:12)
[2017-04-13] MEDS ORDERED: ERGOCALCIFEROL (VIT D2) 50,000 UNIT CAP PO ONE (14:00)
[2017-04-13] MEDS: CHOLECALCIFEROL (VIT D3) 5000 UNIT CAP PO SCH (14:00)
[2017-04-13] MEDS: POTASSIUM CHLORIDE 20 MEQ CONTROLLED RELEASE TAB PO SCH ×2 (14:34→22:37)
[2017-04-13] MEDS: guaiFENesin E.R. 600 MG TAB PO SCH ×2 (14:34→22:36)
[2017-04-13] MEDS: FOLIC ACID 1 MG TAB PO SCH (14:34)
[2017-04-13] MEDS: DOCUSATE SODIUM 50 MG/SENNA 8.6 MG TAB PO SCH ×2 (14:34→22:36)
[2017-04-13] MEDS: FAMOTIDINE 20 MG TAB PO SCH ×2 (14:34→22:36)
[2017-04-13] MEDS: MULTIVITAMINS/MINERALS THERAPEUTIC TAB PO SCH (14:35)
[2017-04-13] MEDS ORDERED: DO NOT ADM ANY ANTICOAGULANT DRUGS PRN (16:00)
[2017-04-13] MEDS: THIAMINE INJ 100 MG in SODIUM CHLORIDE 0.9% INJ 100 ML IV SCH (21:43)
[2017-04-13] MEDS: APIXABAN 5 MG TABLET PO SCH (22:36)
[2017-04-13] MEDS: ATORVASTATIN 40 MG TAB PO SCH (22:37)
[2017-04-13] MEDS: MULTIVITAMIN INJ 10 ML, FOLIC ACID INJ 1 MG in SODIUM CHLORID 0.9% 500 ML INJ 500 ML IV SCH (22:39)
[2017-04-14] MEDS: MORPHINE SULFATE 4 MG/ML INJ IV PUSH PRN (00:43)
[2017-04-14] MEDS: RESP: ALBUTEROL 2.5 MG/IPRATROPIUM 0.5 MG NEB (SCH) NEB ×2 (03:30→16:46)
[2017-04-14 05:44] VITALS: BP 107/58; PULSE 110; RESP 18; TEMP 98.4; O2SAT 92
--- NOTE | 2017-04-14 06:53 | PD.ORT.PN ---
Subjective Subjective Remarks POD 1 s/p IMN right hip doing well. pain controlled. no compalints. states she is feeling good Objective Vitals Vital Signs Date Time Temp Pulse Resp B/P (MAP) Pulse Ox O2 Delivery O2 Flow Rate FiO2 04/14/17 05:44 98.4 110 18 107/58 (74) 92 04/13/17 23:43 98.3 118 19 113/62 (79) 92 04/13/17 21:41 93 04/13/17 19:10 98.9 111 18 105/59 (74) 96 04/13/17 16:47 98 21 04/13/17 12:00 97.5 108 18 105/61 (76) 97 04/13/17 11:00 102 16 108/59 (75) 97 Nasal Cannula 2 04/13/17 10:30 106 16 101/55 (70) 98 Nasal Cannula 2 04/13/17 10:15 108 16 106/63 (77) 98 Nasal Cannula 2 04/13/17 10:00 102 16 119/58 (78) 99 Nasal Cannula 2 04/13/17 09:45 102 16 112/64 (80) 99 Nasal Cannula 2 04/13/17 09:39 98.8 106 16 120/58 (78) 100 Nasal Cannula 2 04/13/17 08:00 99.0 110 16 120/71 (87) 96 I/O 04/13/17 04/13/17 04/13/17 04/14/17 04/14/17 04/14/17 07:00 15:00 23:00 07:00 15:00 23:00 Intake Total 1070.2 ml 640 ml 480 ml 480 ml Output Total 25 ml Balance 1070.2 ml 615 ml 480 ml 480 ml Intake Oral 0 ml 240 ml 480 ml 480 ml IV Total 1070.2 ml Other 400 ml Output Estimated Blood Loss 25 ml # Voids 6 5 3 5 # Bowel Movements 0 0 0 Result Diagram: 04/12/17 0611 04/12/17 06 Imaging Last 24 hours Impressions Hip and Pelvis X-Ray 04/11/17 1551 Signed Impressions: Service Date/Time: Tuesday, April 11, 2017 16:02 - CONCLUSION: Oblique fracture through the trochanteric and subtrochanteric region of the proximal right femur. Abelardo Combs MD Objective Remarks RLE: dressings clean and dry. intact. NVI Assessment & Plan Assessment and Plan 1) Right Subtroch Hip fx -50%WB RLE -daily dressing changes POD 2 -CM for DC planning. patient lives alone and will need SNF placement -resume home dose eliquis for DVT prophylaxis -follow up with Harpreet or MICHAEL in 2 weeks Sb Olivas/First Brianna RODRIGUEZ Apr 14, 2017 06:53
[2017-04-14 08:00] VITALS: BP 109/58; PULSE 106; RESP 18; TEMP 98.7; O2SAT 92
[2017-04-14] MEDS: REMOVE OLD PATCH T-DERMAL SCH (09:00)
[2017-04-14] MEDS: guaiFENesin E.R. 600 MG TAB PO SCH (09:00)
[2017-04-14] MEDS: FAMOTIDINE 20 MG TAB PO SCH (09:00)
[2017-04-14] MEDS: FOLIC ACID 1 MG TAB PO SCH (09:00)
[2017-04-14] MEDS: NICOTINE 7 MG/24 HR PATCH T-DERMAL SCH (09:00)
[2017-04-14] MEDS: MULTIVITAMINS/MINERALS THERAPEUTIC TAB PO SCH (09:00)
[2017-04-14] MEDS: CHOLECALCIFEROL (VIT D3) 5000 UNIT CAP PO SCH (09:23)
[2017-04-14] MEDS: CALCIUM/VITAMIN D 250 MG/125 U TAB PO SCH ×2 (09:23→13:18)
[2017-04-14] MEDS: APIXABAN 5 MG TABLET PO SCH (09:23)
[2017-04-14] MEDS: amLODIPine BESYLATE 5 MG TAB PO SCH (09:23)
[2017-04-14] MEDS: DOCUSATE SODIUM 50 MG/SENNA 8.6 MG TAB PO SCH (09:24)
[2017-04-14] MEDS: SODIUM CHLORIDE 0.9% FLUSH 10 ML FLUSH IV FLUSH SCH (09:31)
[2017-04-14 09:36] LABS: HEMATOCRIT 27.9 % (35.0-46.0); REVIEW FLAG FINAL
[2017-04-14 09:47] VITALS: O2SAT 99
[2017-04-14 10:37] LABS: BICARBONATE 27.4 MEQ/L (21.0-32.0); MAGNESIUM 2.1 MG/DL (1.5-2.5); POTASSIUM 4.2 MEQ/L (3.5-5.1)
[2017-04-14 12:00] VITALS: BP 106/63; PULSE 100; RESP 18; TEMP 98.2; O2SAT 93
[2017-04-14] MEDS ORDERED: NICO1DIS8 T-DERMAL (13:31)
[2017-04-14] MEDS ORDERED: THIA100 PO (13:31)
[2017-04-14] MEDS ORDERED: FOLI1TAB6 PO (13:31)
--- NOTE | 2017-04-14 13:36 | HHI.PR ---
Subjective Remarks Status post Fall with Secondary Right Intertrochanteric Fracture, This is a pleasant 49 y/o Female, has history of chronic alcoholism, Hypertension and chronic blood clots on Eliquis. stable in her bedroom, Nurse Miss Corrales, her Niece Miss Neely present. 04/13: with Diagnosis of displaced right proximal femur fracture, status post Reduction and intramedullary nail fixation right femur by doctor Levi Mullins 04/13/17. 04/14: Stable in her bedroom, already seen by Orthopedic surgery and recommended for discharge to SNF today, resume Eliquis was done, daily dressing changes POD#2, follow with Doctor Mullins in two weeks. no nausea, vomit or diarrhea. Objective Vital Signs Date Time Temp Pulse Resp B/P (MAP) Pulse Ox O2 Delivery O2 Flow Rate FiO2 04/14/17 12:00 98.2 100 18 106/63 (77) 93 04/14/17 09:47 99 Nasal Cannula 1.00 04/14/17 08:00 98.7 106 18 109/58 (75) 92 04/14/17 05:44 98.4 110 18 107/58 (74) 92 04/13/17 23:43 98.3 118 19 113/62 (79) 92 04/13/17 21:41 93 04/13/17 19:10 98.9 111 18 105/59 (74) 96 04/13/17 16:47 98 21 I/O 04/13/17 04/13/17 04/13/17 04/14/17 04/14/17 04/14/17 07:00 15:00 23:00 07:00 15:00 23:00 Intake Total 1070.2 ml 640 ml 480 ml 480 ml Output Total 25 ml Balance 1070.2 ml 615 ml 480 ml 480 ml Intake Oral 0 ml 240 ml 480 ml 480 ml IV Total 1070.2 ml Other 400 ml Output Estimated Blood Loss 25 ml # Voids 6 5 3 5 # Bowel Movements 0 0 0 Result Diagram: 04/14/17 0800 04/14/17 0800 Imaging Last Impressions Femur X-Ray 04/13/17 0000 Signed Impressions: Service Date/Time: Thursday, April 13, 2017 09:08 - CONCLUSION: 1. Status post right hip ORIF in anatomic alignment without new fractures. Carrillo Vasquez MD Hip and Pelvis X-Ray 04/11/17 1553 Signed Impressions: Service Date/Time: Tuesday, April 11, 2017 16:02 - CONCLUSION: Oblique fracture through the trochanteric and subtrochanteric region of the proximal right femur. Abelardo Combs MD Procedures Diagnosis of displaced right proximal femur fracture, status post Reduction and intramedullary nail fixation right femur by doctor Levi Mullins 04/13/17. Other Results Laboratory Tests Test 04/11/17 15:56 04/11/17 17:34 04/12/17 06:11 04/13/17 15:36 Activated Partial Thromboplast Time 23.8 SEC Ethyl Alcohol Level 133 MG/DL Urine Color YELLOW Urine Turbidity HAZY Urine pH 5.5 Urine Specific [place] 1.015 Urine Protein 30 mg/dL Urine Glucose (UA) NEG mg/dL Urine Ketones 10 mg/dL Urine Occult Blood NEG Urine Nitrite NEG Urine Bilirubin NEG Urine Urobilinogen LESS THAN 2.0 MG/DL Urine Leukocyte Esterase NEG Urine RBC 1 /hpf Urine WBC 3 /hpf Urine Squamous Epithelial Cells 3 /hpf Urine Bacteria RARE /hpf Urine Hyaline Casts 35 /lpf Urine Mucus FEW /lpf Microscopic Urinalysis Comment CATH-CULTURE IND White Blood Count 8.6 TH/MM3 Red Blood Count 3.06 MIL/MM3 Mean Corpuscular Volume 107.9 FL Mean Corpuscular Hemoglobin 37.2 PG Mean Corpuscular Hemoglobin Concent 34.5 % Red Cell Distribution Width 14.3 % Platelet Count 132 TH/MM3 Mean Platelet Volume 6.7 FL Neutrophils (%) (Auto) 74.2 % Lymphocytes (%) (Auto) 15.4 % Monocytes (%) (Auto) 9.4 % Eosinophils (%) (Auto) 0.3 % Basophils (%) (Auto) 0.7 % Neutrophils # (Auto) 6.4 TH/MM3 Lymphocytes # (Auto) 1.3 TH/MM3 Monocytes # (Auto) 0.8 TH/MM3 Eosinophils # (Auto) 0.0 TH/MM3 Basophils # (Auto) 0.1 TH/MM3 CBC Comment DIFF FINAL Differential Comment Prothrombin Time 10.2 SEC Prothromb Time International Ratio 1.0 RATIO Hemoglobin A1c 5.8 % Blood Urea Nitrogen 6 MG/DL Creatinine 0.40 MG/DL Random Glucose 108 MG/DL Total Protein 6.2 GM/DL Albumin 2.8 GM/DL Calcium Level 7.6 MG/DL Phosphorus Level 2.8 MG/DL Magnesium Level 2.0 MG/DL Alkaline Phosphatase 74 U/L Aspartate Amino Transf (AST/SGOT) 34 U/L Alanine Aminotransferase (ALT/SGPT) 40 U/L Total Bilirubin 0.9 MG/DL Sodium Level 137 MEQ/L Potassium Level 4.3 MEQ/L Chloride Level 102 MEQ/L Carbon Dioxide Level 28.6 MEQ/L Free Thyroxine 1.33 NG/DL Thyroid Stimulating Hormone 3rd Gen 3.390 uIU/ML 25-Hydroxy Vitamin D Total 9.0 ng/ML Test 04/14/17 08:00 Hemoglobin 9.7 GM/DL Hematocrit 27.9 % Blood Urea Nitrogen 3 MG/DL Creatinine 0.28 MG/DL Random Glucose 106 MG/DL Calcium Level 8.4 MG/DL Phosphorus Level 3.4 MG/DL Magnesium Level 2.1 MG/DL Sodium Level 133 MEQ/L Potassium Level 4.2 MEQ/L Chloride Level 99 MEQ/L Carbon Dioxide Level 27.4 MEQ/L Anion Gap 7 MEQ/L Estimat Glomerular Filtration Rate 247 ML/MIN Objective Remarks GENERAL: Obese patient EYES: Pupils equal round and reactive. Extraocular motions intact. ENT: wet mucous membranes. NECK: Trachea midline. No JVD or lymphadenopathy. Supple, nontender, no meningeal signs. CARDIOVASCULAR: Regular rate and rhythm without murmurs, gallops, or rubs. S1 and S2 no S3 or S4 RESPIRATORY: Clear to auscultation. Breath sounds equal bilaterally. No wheezes , rales, or rhonchi. GASTROINTESTINAL: Abdomen soft, non-tender, nondistended. No hepato-splenomegaly , or palpable masses. No guarding. MUSCULOSKELETAL: Right hip dressed. NEUROLOGICAL: Awake and alert.No focal deficits. Medications and IVs Current Medications Medications (Trade) Dose Ordered Sig/Stephanie Route Start Time Stop Time Status Last Admin (Tylenol) 650 mg Q4H PRN PO 04/11/17 18:45 (Zofran Inj) 4 mg Q6H PRN IVP 04/11/17 18:45 (Compazine Supp) 25 mg Q12H PRN RECTAL 04/11/17 18:45 (Ambien) 5 mg HS PRN PO 04/11/17 18:45 (Motrin) 400 mg Q6H PRN PO 1210/17 18:45 (Roxicodone) 10 mg Q4H PRN PO 04/11/17 18:45 04/14/17 13:18 (Morphine Inj) 2 mg Q3H PRN IV PUSH 04/11/17 18:45 (Morphine Inj) 4 mg Q3H PRN IV PUSH 04/11/17 18:45 04/13/17 06:10 (Roxicodone) 5 mg Q4H PRN PO 04/11/17 18:45 (Narcan Inj) 0.4 mg UNSCH PRN IV PUSH 04/11/17 18:45 (Tarsha-Colace) 1 tab BID PO 04/11/17 21:00 04/14/17 09:24 (Milk Of Magnesia Liq) 30 ml Q12H PRN PO 04/11/17 18:45 (Senokot) 17.2 mg Q12H PRN PO 04/11/17 18:45 04/11/17 21:38 (Dulcolax Supp) 10 mg DAILY PRN RECTAL 04/11/17 18:45 (Lactulose Liq) 30 ml DAILY PRN PO 04/11/17 18:45 (Romazicon Inj) 0.2 mg Q1M PRN IV PUSH 04/11/17 18:45 (NS Flush) 2 ml UNSCH PRN IV FLUSH 04/11/17 18:45 (NS Flush) 2 ml BID IV FLUSH 04/11/17 21:00 04/14/17 09:31 (Folate) 1 mg DAILY PO 04/11/17 18:45 04/16/17 18:44 04/13/17 14:34 (Theragran M Tab) 1 tab DAILY PO 04/11/17 18:45 04/16/17 18:44 04/13/17 14:35 Multivitamins 10 ml/Folic Acid 1 mg/Sodium Chloride 510.2 ml @ 125 mls/hr Q24H IV 04/11/17 20:00 04/16/17 19:59 04/13/17 22:39 Thiamine HCl 100 mg/Sodium Chloride 101 ml @ 100 mls/hr Q24H IV 04/11/17 20:00 04/14/17 19:59 04/13/17 21:43 (Vitamin B1) 100 mg DAILY PO 04/15/17 09:00 (Pepcid) 20 mg BID PO 04/11/17 21:00 04/13/17 22:36 (Catapres) 0.1 mg Q6H PRN PO 04/11/17 18:45 (Haldol Inj) 2 mg Q15M PRN IM 04/11/17 18:45 (Habitrol 7 Mg Patch.24 Hr) 1 patch DAILY T-DERMAL 04/12/17 09:00 Miscellaneous Information 1 DAILY T-DERMAL 04/12/17 09:00 04/14/17 09:00 (Librium) 50 mg Q6H PRN PO 04/11/17 19:00 (Norvasc) 10 mg DAILY PO 04/11/17 19:00 04/14/17 09:23 (Lipitor) 40 mg HS PO 04/11/17 21:00 04/13/17 22:37 Lactated Ringer's 1,000 ml @ 30 mls/hr Q24H PRN IV 04/12/17 00:15 04/15/17 00:14 Sodium Chloride 500 ml @ 30 mls/hr [id number] PRN IV 04/12/17 00:15 04/15/17 00:14 (Lopressor) 25 mg [employer] PRN PO 04/12/17 00:15 04/15/17 00:14 (Betadine 5% Antisepsis Kit) 1 applic [employer] PRN EACH NARE 04/12/17 00:15 04/15/17 00:14 (Chlorhexidine 2% Cloth) 3 pack [employer] PRN TOPICAL 04/12/17 00:15 04/15/17 00:14 (Duoneb Neb) 1 ampule Q6HR NEB NEB 04/12/17 16:00 04/13/17 21:40 (Mucinex Er) 600 mg BID PO 04/12/17 21:00 04/13/17 22:36 (Oscal-D 250-125) 250 mg TID PO 04/13/17 09:00 04/14/17 13:18 (Benadryl) 25 mg Q6H PRN PO 04/13/17 08:45 (Morphine Inj) 4 mg Q3H PRN IV PUSH 04/13/17 08:45 04/14/17 00:43 (Vitamin D3) 5,000 units DAILY PO 04/13/17 14:00 04/14/17 09:23 (Eliquis) 5 mg BID PO 04/13/17 20:00 04/14/17 09:23 Miscellaneous Information ALL NURSING DEPARTME... UNSCH PRN .XX 04/13/17 16:00 04/14/17 15:59 (Drisdol) 50,000 units Q7D PO 04/14/17 13:30 UNV Non-Formulary Medication 1 tab BID PO 04/14/17 21:00 UNV A/P Assessment and Plan Fracture right hip and femur, Orthopedic surgery following for Right Hip arthroplasty today seen by Orthopedic surgery and recommended for discharge to SNF today, resume Eliquis was done, daily dressing changes POD#2, follow with Doctor Harpreet in two weeks. Chronic alcohol abuse continue on multivitamin thiamine and folic acid and Librium, CIWA protocol. no signs of withdrawal. Hypertension controlled. Chronic coagulopathy possibly due to antiphospholipid antibody syndrome but the patient is not sure Cannot do Eliquis this time we'll hold Tobacco abuse continue on NicoDerm patch, Bronchodilator, Mucolytic and incentive spirometry. strongly recommended to stop smoking. Obesity strongly recommended diet and exercise as outpatient. DVT prophylaxis with Eliquis Discharge Planning discharge to SNF once bed available. Ortiz Sims MD Apr 14, 2017 13:36
[2017-04-14 16:00] VITALS: BP 109/72; PULSE 100; RESP 18; TEMP 96.7; O2SAT 97
[2017-04-14 16:46] VITALS: O2SAT 97
[2017-04-14] MEDS ORDERED: NON-FORMULARY DRUG (Calcium Carbonate-Vitamin D (Calcium 600+D 200) 1 TAB) PO SCH (21:00)
[2017-04-15] MEDS ORDERED: THIAMINE HCL 100 MG TAB PO SCH (09:00)
[2017-04-20] MEDS ORDERED: ERGOCALCIFEROL (VIT D2) 50,000 UNIT CAP PO SCH (14:00)
== END 2017-04-14 19:29 | DRG 481 ==
LOC: NEPC 15:37 → NEDA 17:18 → N06B 19:25
PROVIDERS: ADMIT Internal Medicine; ATTEND Internal Medicine
PROC: 0QS606Z Reposition Right Upper Femur with Intramedullary Internal Fixation Device, Open Approach (ICD-10-PCS; principal; 2017-04-13 08:26)
DX: S72.141A Displaced intertrochanteric fracture of right femur, initial encounter for closed fracture (principal); M87.9 Osteonecrosis, unspecified; D68.61 Antiphospholipid syndrome; I10 Essential (primary) hypertension; E78.5 Hyperlipidemia, unspecified; E66.9 Obesity, unspecified; M19.90 Unspecified osteoarthritis, unspecified site; F10.20 Alcohol dependence, uncomplicated; F17.210 Nicotine dependence, cigarettes, uncomplicated; W18.30XA Fall on same level, unspecified, initial encounter; Y92.009 Unspecified place in unspecified non-institutional (private) residence as the place of occurrence of the external cause; Z68.33 Body mass index [BMI] 33.0-33.9, adult; Z79.01 Long term (current) use of anticoagulants; Z86.718 Personal history of other venous thrombosis and embolism
CPT/HCPCS: 36415; 73502; 73552; 76000; 80048; 80053; 80307; 81001; 82306; 82948; 83036; 83735; 84100; 84439; 84443; 85014; 85018; 85025; 85610; 85730; 86850; 86900; 86901; 87077; 87086; 87186; 93005; 94150; 94640; 94664; 96361; 96374; 96375; J0131; J0690; J0696; J1170; J1580; J2270; J2405; J2550; J3370; J3411; J3475; J7030; J7040